=== PATIENT | male | born 1955 | race Caucasian/White ===

== ENCOUNTER 2022-09-06 00:31 | Emergency (ER) | payer OTHER, SELFPAY ==
[2022-09-06] VITALS (7 sets, daily range): BP systolic 104–188; BP diastolic 65–91; PULSE 55–79; RESP 12–19; TEMP 36.6; O2SAT 91–99; BMI 26.5
--- NOTE | 2022-09-06 00:46 | EKG12_ITS ---
Test Reason : HYPOGLYCEMIA Blood Pressure : / mmHG Vent. Rate : 055 BPM Atrial Rate : 055 BPM P-R Int : 198 ms QRS Dur : 106 ms QT Int : 492 ms P-R-T Axes : 061 027 058 degrees QTc Int : 470 ms Sinus bradycardia Otherwise normal ECG Confirmed by LUZ TERAN, LISA ([id number]), marketing editor DONAL ROCK ([id number]) on 09/07/2022 1:28:34 PM Referred By: VIRGILIO Confirmed By:LISA ESCOBAR MD
[2022-09-06 01:01] LABS: Bedside Glucose 141 mg/dL (74-106)
--- NOTE | 2022-09-06 01:29 | CT_ITS ---
INDICATION: fall EXAMINATION: CT Head or Brain W/O Contrast Injection TECHNIQUE: Multiple axial images were obtained of the head without intravenous contrast. A radiation dose optimization technique was used for this scan. IV Contrast dosage and agent: None. COMPARISON: None FINDINGS: BRAIN PARENCHYMA: No intra- or extra-axial hemorrhage. No evidence of acute major territorial infarct. Small, chronic right gangliocapsular lacunar infarcts. No intracranial mass or mass effect. Mild bilateral deep cerebral white matter lucencies are present. Chronic cerebral involutional changes. CSF SPACES: Prominent cerebral sulci and extraaxial spaces secondary to involutional changes. No hydrocephalus. Basal cisterns are patent. Intracranial atherosclerotic calcifications. CALVARIUM, SKULL BASE, PARANASAL SINUSES AND MASTOID AIR CELLS: Calvarium is intact. No acute findings within paranasal sinuses. Mastoid air cells are well-pneumatized. ORBITS: No acute findings. CT/Brain/Head without Contrast IMPRESSION: Cerebral atrophy and chronic small vessel ischemic changes. No evidence of acute intracranial abnormality. Electronically Signed: Herb Forde MD at 2:09 EST ,
[2022-09-06 01:59] LABS: Absolute Lymphocyte Count 1.38 X10^3/uL (0.83-4.51); Absolute Neutrophil Count 4.9 X10^3/uL (2.0-7.7); Basophil# 0.04 X10^3/uL; Basophil% 0.5 % (0-1); Eosinophil# 0.51 X10^3/uL; Eosinophils% 6.7 % (0-5); Hematocrit 38.2 % (40-54); Hemoglobin 12.7 g/dL (13.0-16.5); Lymphocyte # 1.38 X10^3/ul (0.83-4.51); Lymphocyte % 18.1 % (19-41); Mean Corp Hgb Conc 33.2 g/dL (32-36); Mean Corpuscular Hgb 29.6 pg (27.0-32.0); Mean Platelet Vol. 12.7 fl (6.2-12.0); Monocyte# 0.75 X10^3/uL; Monocyte% 9.8 % (0-10); NRBC Flagged by Analyzer 0 % (0-5); Neutrophil % 64.4 % (47-70); Platelet Count 221 K/mm3 (150-450); RBC Distribution Width CV 12.9 % (11.6-14.6); Red Blood Count 4.29 M/mm3 (4.6-6.2); White Blood Count 7.6 K/mm3 (4.4-11.0)
[2022-09-06 02:08] LABS: Anion Gap 6 (5-15); BUN 22 mg/dL (7-18); BUN/Creat Ratio 20.2 RATIO (10-20); Calcium,Total 9.3 mg/dL (8.5-10.1); Chloride 101 mmol/L (98-107); Creatinine, Serum 1.09 mg/dL (0.70-1.30); EST Glomerular Filtration Rate 72 mL/min (>60); Est Glom Filt Rate - Afr Amer 87 mL/min (>60); Estimated Creatinine Clearance 63.62 ml/min; Glucose 173 mg/dL (74-106); Sodium Level 133 mmol/L (136-145)
[2022-09-06 03:16] LABS: Bedside Glucose 405 mg/dL (74-106)
--- NOTE | 2022-09-06 03:59 | EDS_ITS ---
HPI History of Present Illness Chief Complaint: Hypoglycemia Informant: patient and family (son) Onset/Context/Timing Onset: Today (JPTA) Quality: decreased LOC Location: all over Current Severity: Gone Maximum Severity: Severe Worsened by: nothing Relieved by: Glucagon injection Narrative Narrative: Son provides the majority of the history. Patient was hypoglycemic at home, his son detected him lying on the floor unresponsive and depressed level of consciousness, checked his blood sugar and it was in the 40s because this is happened before, gave him an injection of glucagon and called EMS. EMS picked him up, blood sugar over 100 and patient improved, he now feels fine. 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 Son states his blood sugars have been all over the map, anywhere from 700 down to the 40s like tonight. Earlier today, patient was feeling fine, compliant with his diabetes medications/insulin which he takes before each meal, along with a long-acting at night and then a sliding scale for when he needs it. He took his insulin prior to eating dinner, after dinner at some point an hour or so maybe, his blood sugar was around 560, as checked by his son. He advised his dad to take at the appropriate dose of insulin, the patient does not remember if he took it in the sun did not witness whether he did it or not. Later in the middle of the night, he woke up as above, hypoglycemic. Since new to the area, the patient does not yet have a PCP nor supervisor scouring pads. No recent illnesses. Does not think he injured himself by falling tonight, he denies having a headache. [facility] Medical History Diabetes Hypertension Irregular heart beat Kidney disease Seizures Stroke/cerebrovascular accident Home Medications Unobtainable 09/06/22 [History Last Taken Unknown] Allergy/AdvReac Type Severity Reaction Status Date / Time No Known Allergies Allergy Verified 09/06/22 00:41 Social History Smoking Status: Former smoker ROS ROS ED Constitutional Constitutional ED: Denies chills or fever(s) Eyes Eyes: Denies change in vision or diplopia ENT ENT ED: Denies rhinorrhea or sore throat Cardiovascular Cardiovascular: Denies chest pain or palpitations Respiratory/Chest Respiratory/Chest: Denies cough or dyspnea Gastrointestinal Gastrointestinal: Denies abdominal pain, diarrhea, nausea or vomiting Genitourinary Genitourinary ED: Denies dysuria or hematuria Musculoskeletal Musculoskeletal: Denies back pain or neck pain Integumentary Denies abscess or rash Neurologic Neurologic: Denies headache(s), paresthesias or weakness Psychiatric Psychiatric: Denies anxiety or suicidal thoughts EXAM Physical Exam Const Vital Signs: 09/06/22 00:32 09/06/22 00:45 09/06/22 01:58 Temperature 97.8 F Temperature Source Temporal Pulse Rate 55 L 57 L Respiratory Rate 18 18 Respiratory Effort Normal Non-Labored Respiratory Pattern Normal Blood Pressure 188/91 H 111/66 Blood Pressure Mean 123 81 Pulse Ox 98 91 Oxygen Delivery Method Room Air Room Air 09/06/22 02:44 09/06/22 04:00 09/06/22 05:00 Temperature Temperature Source Pulse Rate 56 L 60 70 Respiratory Rate 16 14 12 Respiratory Effort Respiratory Pattern Blood Pressure 104/65 135/76 H 148/86 H Blood Pressure Mean 78 95 106 Pulse Ox 96 98 98 Oxygen Delivery Method Room Air Room Air Room Air 09/06/22 06:04 09/06/22 06:00 Temperature Temperature Source Pulse Rate 79 76 Respiratory Rate 19 H 12 Respiratory Effort Respiratory Pattern Blood Pressure 124/73 H 124/73 H Blood Pressure Mean 90 Pulse Ox 99 97 Oxygen Delivery Method Room Air Positive well nourished and well developed General Appearance ED: well developed and NAD HEENT Reports moist mucous membranes normocephalic and atraumatic Eyes PERRL and EOMs intact bilaterally Neck full ROM and supple Resp normal respiratory effort and clear to auscultation bilaterally Cardio regular rate, regular rhythm and no murmurs GI non-tender and non-distended Auscultation: normoactive bowel sounds Palpation: soft Back/Spine no CVA tenderness General Back: other FROM Extremity normal to inspection General Extremety ED: Negative for edema, pulses abnormal or tenderness General Extremity: Negative for edema or pulses abnormal Neuro oriented x3, CN's II-XII intact bilaterally and no sensory deficits noted Neuro Narrative: Amnestic to some detailed events from past day but oriented. Sensorium / Orientation: awake and alert Motor Exam: strength 5/5 throughout Psych mental status grossly normal Skin no rashes or lesions noted and no wounds MDM MDM MDM Narrative Medical decision making narrative: My interpretation of the CT agrees with that of the radiologist. Negative for any acute abnormality, this was performed since the patient is amnestic to events of the past several hours/day, and it was an unwitnessed possible fall unknown if he had any injury. He does not appear to have any other injuries, he can move all 4 extremities without any difficulty or pain, and he has no signs of trauma objectively. His blood tests are unremarkable, we spent a majority of his visit trying to level out his blood sugar. Without any specific treatment although initially I had the patient get a little something to eat, his blood sugars continue to rise of the next couple hours into the 400s and then I thought it would be reasonable to give him a dose of subcutaneous insulin to prevent him from rising further. We continued to monitor him, in addition to giving him fluids for some relatively mild prerenal azotemia. He was given 10 units of subcutaneous lispro, and on 2 different reevaluations within the next 1.5-2 hours, his blood sugar leveled off and came down into the mid 300s. Patient is doing well and feeling fine. I am comfortable with him going home I do not think admitting him to the hospital is necessary here. I am referring him to the next doctor on the unassigned list for primary care in addition to endocrine for diabetes and attempting to regain better sugar control. Lab Data Attestation: I reviewed the patient's lab results. Labs: Laboratory Results - last 24 hr 09/06/22 09/06/22 09/06/22 00:36 00:45 00:45 WBC 7.6 RBC 4.29 L Hgb 12.7 L Hct 38.2 L MCV 89.0 MCH 29.6 MCHC 33.2 RDW Std Deviation 42.0 RDW Coeff of Tyrese 12.9 Plt Count 221 MPV 12.7 H Immature Gran % (Auto) 0.500 Neut % (Auto) 64.4 Lymph % (Auto) 18.1 L [place] % (Auto) 9.8 Eos % (Auto) 6.7 H Baso % (Auto) 0.5 Absolute Neuts (auto) 4.9 Absolute Lymphs (auto) 1.38 Nucleated RBC % 0 Sodium 133 L Potassium 4.0 Chloride 101 Carbon Dioxide 26.0 Anion Gap 6 BUN 22 H Creatinine 1.09 Estim Creat Clear Calc 63.62 Est GFR (MDRD) Af Amer 87 Est GFR (MDRD) Non-Af 72 BUN/Creatinine Ratio 20.2 H Glucose 173 H Calcium 9.3 POC Glucose 141 H 09/06/22 09/06/22 09/06/22 02:54 04:50 05:29 WBC RBC Hgb Hct MCV MCH MCHC RDW Std Deviation RDW Coeff of Tyrese Plt Count MPV Immature Gran % (Auto) Neut % (Auto) Lymph % (Auto) [place] % (Auto) Eos % (Auto) Baso % (Auto) Absolute Neuts (auto) Absolute Lymphs (auto) Nucleated RBC % Sodium Potassium Chloride Carbon Dioxide Anion Gap BUN Creatinine Estim Creat Clear Calc Est GFR (MDRD) Af Amer Est GFR (MDRD) Non-Af BUN/Creatinine Ratio Glucose Calcium POC Glucose 405 H 371 H 361 H Radiography Diagnostic Testing: Clinical Impression(s) from Imaging Studies Brain CT 09/06/22 01:29 IMPRESSION: Cerebral atrophy and chronic small vessel ischemic changes. No evidence of acute intracranial abnormality. Electronically Signed: Herb Forde MD at 2:09 EST , Rhythm Strip Rhythm Strip: Sinus Rhythm Rate: 55 Ectopy: None EKG Initial EKG: Attestation: I personally reviewed and interpreted this EKG as follows: Interpretation: Sinus Rhythm and No Acute Injury Pattern Discharge Plan Triage Chief Complaint: Hypoglycemia ED Provider: Omar Garcia Dx/Rx/DC Orders Clinical Impression: Hypoglycemic event in diabetes, Uncontrolled type 1 diabetes mellitus Instructions: ED Diabetic Insulin Reaction Prescriptions: No Action Unobtainable Primary Care Provider: Care Physician,No Primary Referrals: Abdulkadir Nieto MD [Med Staff - Associate Professor Of Violin] - As soon as possible Lamine Najera MD [Med Staff - Courtesy Staff] - As soon as possible Care Physician,No Primary [Primary Care Provider] - Disposition Disposition: Home, Self Care Discharge Date/Time: 09/06/22 06:19
[2022-09-06] MEDS: Insulin Lispro 100 UNIT/ML INSULN.PEN 10 UNIT SC (04:12)
[2022-09-06 05:11] LABS: Bedside Glucose 371 mg/dL (74-106)
[2022-09-06 05:51] LABS: Bedside Glucose 361 mg/dL (74-106)
[2022-09-07 08:40] LABS: Bedside Glucose 358 mg/dL (74-106)
[2022-09-07 08:40] LABS: Bedside Glucose 367 mg/dL (74-106)
== END 2022-09-06 06:19 | disposition home or self-care (01) ==
PROVIDERS: Emergency Provider Emergency Medicine; Visit Provider Emergency Medicine
DX: E10.649 Type 1 diabetes mellitus with hypoglycemia without coma (principal); Z87.891 Personal history of nicotine dependence; Z86.73 Personal history of transient ischemic attack (TIA), and cerebral infarction without residual deficits
CPT/HCPCS: 70450; 80048; 82962; 85025; 93005; 96360; 99285; A4216

== ENCOUNTER 2022-09-09 18:18 | Inpatient (IN) | payer OTHER, SELFPAY ==
[2022-09-09 18:20] VITALS: BP 127/101; PULSE 79; RESP 16; TEMP 36.7; O2SAT 100; BMI 24.3
--- NOTE | 2022-09-09 19:25 | EKG12_ITS ---
Test Reason : DYSRHYTHMIA Blood Pressure : / mmHG Vent. Rate : 067 BPM Atrial Rate : 067 BPM P-R Int : 188 ms QRS Dur : 100 ms QT Int : 428 ms P-R-T Axes : 045 019 057 degrees QTc Int : 452 ms Normal sinus rhythm Normal ECG Confirmed by DIANE TERAN, MANISH ([id number]), editorial director DONAL ROCK ([id number]) on 09/13/2022 10:35:26 AM Referred By: AXEL Confirmed By:KEELY CONTRERAS MD
--- NOTE | 2022-09-09 19:32 | EX.ED.DYSGE1 ---
HPI History of Present Illness Chief Complaint: Hyperglycemia Detail of Chief Complaint: Sugar greater than 700, difficulty standing, polydipsia Informant: patient and family Onset/Context/Timing Onset: Today Context: Sudden Onset Timing: Continuous Quality: Difficulty standing and high blood sugar Location: Presents from home Current Severity: Moderate Maximum Severity: Moderate Worsened by: Nothing Relieved by: Nothing Associated Symptoms Associated Symptoms: Inability to stand or walk, which is abnormal for patient Narrative Narrative: Patient is a 67-year-old male with type 1 diabetes since 1989 and history of hypertension who presents with confusion, difficulty standing and blood sugar greater than 700. Blood sugar was greater than 600 for paramedics. Patient does complain of thirst and dry mouth. He states he has been drinking a lot of fluid. He has had little urine output, however. He denies history of renal disease. He denies fever, chills night sweats. [place] weight loss or weight gain. He does report by ocular blurred vision. He denies double vision or loss of vision. Suspect his blurred vision is due to hyperglycemia. He denies trouble with speech or swallowing. He denies paresthesia, anesthesia or motor weeks. He denies any rash or lesions on his feet. He denies nausea, vomit or diarrhea. He does endorse congestion, rhinorrhea and postnasal drainage. He states he has a mild sore throat with a bad cough that is nonproductive. Prior similar symptoms: Yes Recent Illness/Hospitalization: No [facility] Medical History Diabetes Hypertension Irregular heart beat Kidney disease Seizures Stroke/cerebrovascular accident Home Medications amlodipine 5 mg tablet 5 mg PO DAILY 09/08/22 [History Last Taken Unknown] blood-glucose sensor (Dexcom G6 Sensor device) #9 ea 09/08/22 [Rx Last Taken Unknown] blood-glucose transmitter (Dexcom G6 Transmitter device) #1 ea 09/08/22 [Rx Last Taken Unknown] carvedilol 25 mg tablet 25 mg PO BID 09/08/22 [History Last Taken Unknown] escitalopram oxalate 10 mg tablet 10 mg PO DAILY 09/08/22 [History Last Taken Unknown] insulin glargine 100 unit/mL (3 mL) subcutaneous pen (Lantus Solostar U-100 Insulin) 20 unit subcut QHS 09/08/22 [History Last Taken Unknown] losartan 100 mg tablet 100 mg PO DAILY 09/08/22 [History Last Taken Unknown] tamsulosin 0.4 mg capsule 0.4 mg PO DAILY 09/08/22 [History Last Taken Unknown] Allergy/AdvReac Type Severity Reaction Status Date / Time No Known Allergies Allergy Verified 09/08/22 13:22 Family History Other CVA (cerebral vascular accident) Colon cancer Diabetes Hypertension Social History (Updated 09/09/22 @ 19:[address] Don Neff MD) household members: family Smoking Status: Former smoker alcohol intake: former substance use type: does not use ROS ROS ED Constitutional Constitutional ED: Denies chills, fever(s), subjective, sweats or weight loss Eyes Eyes: Reports blurry vision bilateral; Denies change in vision or diplopia ENT ENT ED: Reports rhinorrhea and sore throat; Denies ear pain Cardiovascular Cardiovascular: Denies chest pain, orthopnea, palpitations, paroxysmal nocturnal dyspnea or racing heartbeat Respiratory/Chest Respiratory/Chest: Reports cough and dyspnea; Denies orthopnea or paroxysmal nocturnal dyspnea Gastrointestinal Gastrointestinal: Denies abdominal pain, diarrhea, melena, nausea or vomiting Genitourinary Genitourinary ED: Denies dysuria, hematuria or urinary frequency Musculoskeletal Musculoskeletal: Denies arthralgias, back pain, myalgias or neck pain Integumentary Denies abscess or rash Neurologic Neurologic: Reports weakness; Denies headache(s) or paresthesias Psychiatric Psychiatric: Denies anxiety or depression Endocrine Endocrinology: Reports polydipsia; Denies polyuria Hematologic/Lymphatic Hematologic/Lymphatic: Reports systems reviewed and no addt'l complaints, except as documented EXAM Physical Exam Const Vital Signs: 09/09/22 18:20 09/09/22 19:55 09/09/22 19:57 Temperature 98.0 F Temperature Source Temporal Pulse Rate 79 71 Respiratory Rate 16 35 H Respiratory Effort Normal Respiratory Pattern Tachypnea Blood Pressure 127/101 H Blood Pressure Mean 109 Pulse Ox 100 98 Oxygen Delivery Method Room Air Room Air Positive well nourished and well developed; Negative for obese General Appearance ED: well developed and NAD; Negative for cyanotic, diaphoretic or pallor Nutritional Appearance: Negative for obese HEENT Reports dry mucous membranes HEENT Narrative: Head is atraumatic no cephalic. Ears normal. TMs normal. Nares patent. Uvula midline. No deviation of protrusion. No erythema or exudate the posterior pharynx. Mouth ED: Yes dry mucous membranes Mouth: dry mucous membranes Eyes PERRL and EOMs intact bilaterally Eyes Narrative: Patient has mild Exsel phimosis. He denies history of thyroid disease. General Eye ED: Negative for pale conjunctiva or scleral icterus Neck no lymphadenopathy, supple and no JVD Chest Wall inspection of chest normal and palpation of chest normal Resp normal respiratory effort and No clear to auscultation bilaterally Auscultation: rales right base Cardio regular rate, regular rhythm, S1 normal heart sound, S2 normal heart sound and no murmurs GI normal to inspection, nondistended, normoactive bowel sounds, non-tender, non-distended and no masses; Negative for hepatosplenomegaly Back/Spine no CVA tenderness Cervical Spine: Negative for cervical spine tenderness Thoracic Spine / Upper Back: Negative for thoracic spinal tenderness Extremity normal to inspection Extremity Narrative: Patient has hair on his toes. DP and PT pulse are palpable but diminished. General Extremety ED: Negative for edema or tenderness General Extremity: Negative for edema Skin no rashes or lesions noted, no wounds and No skin turgor normal General Skin Exam: Negative for jaundice or pallor MDM MDM MDM Narrative Medical decision making narrative: With blood sugar greater than 600/700 concern patient may have honk versus mild DKA. DKA order set was initiated. IV fluids were ordered since patient does not have history of congestive heart failure. CBC to assess white count differential. Since patient appears slightly pale we will also evaluate for anemia. Basic metabolic panel was obtained to assess glucose CO2 anion gap and electrolytes as well as renal function. EKG to determine if there is any evidence of ischemia as a cause of his hyperglycemia since he has no symptoms other than respiratory. Since he does have rales at the right base with nonproductive cough will obtain rapid COVID and influenza screen as well. [facility] [place] was called. Patient apparently eyes became glossy and rolled back and he had abnormal movement of his extremities and now complains of severe headache. Will obtain CT of the head to rule out intracranial bleed. There is no postictal state. He was calling out for his mother who I was informed by his son to hide in 1988. Will administer an additional liter of normal saline Lab Data Attestation: I reviewed the patient's lab results. Lab results narrative: CBC is remarkable for mild anemia. Patient has hyponatremia and hypochloremia this may be due to the fact that he is on a diuretic. CO2 is low at 17 with an anion gap of 16. This would suggest patient has mild DKA. Blood sugar is 457. BUN is 32 with a creatinine of 1.79 and a GFR of 40. BUN and creatinine are elevated compared to prior. Prior BUN was 22 with a creatinine of 0.9. Graft/gravity is 1.02. And does reveal protein, glucose is acute sounds and is negative for occult blood, nitrites and leukoesterase. Patient's blood sugar improved with IV fluids from 457-237. Creatinine improved from 1.79-1.54 with fluids. Patient's BUN/creatinine ratio is greater than 20-1 which would suggest prerenal azotemia. With a anion gap acidosis ketones in urine patient has mild DKA. We will treat his elevated blood sugar with subcu insulin. In my opinion patient does not need an IV drip of insulin. Labs: Laboratory Results - last 24 hr 09/09/22 09/09/22 09/09/22 19:20 19:20 19:41 WBC 5.5 RBC 4.09 L Hgb 11.9 L Hct 35.8 L MCV 87.5 MCH 29.1 MCHC 33.2 RDW Std Deviation 41.6 RDW Coeff of Tyrese 13.0 Plt Count 229 MPV 12.6 H Immature Gran % (Auto) 1.300 H Neut % (Auto) 77.0 H Lymph % (Auto) 13.7 L [place] % (Auto) 7.3 Eos % (Auto) 0.2 Baso % (Auto) 0.5 Absolute Neuts (auto) 4.2 Absolute Lymphs (auto) 0.75 L Nucleated RBC % 0 Sodium 127 L Potassium 3.7 Chloride 94 L Carbon Dioxide 17.0 L Anion Gap 16 H BUN 32 H Creatinine 1.79 H Estim Creat Clear Calc 41.35 Est GFR (MDRD) Af Amer 49 L Est GFR (MDRD) Non-Af 40 L BUN/Creatinine Ratio 17.9 Glucose 457 H* Calcium 9.1 Troponin I High Sens 5 Urine Color Urine Clarity Urine pH Ur Specific [place] Urine Protein Urine Glucose (UA) Urine Ketones Urine Occult Blood Urine Nitrite Urine Bilirubin Urine Urobilinogen Ur Leukocyte Esterase Urine RBC Urine WBC Ur Squamous Epith Cells Urine Bacteria Hyaline Casts Urine Mucus POC Glucose 378 H 09/09/22 09/09/22 21:35 21:44 WBC RBC Hgb Hct MCV MCH MCHC RDW Std Deviation RDW Coeff of Tyrese Plt Count MPV Immature Gran % (Auto) Neut % (Auto) Lymph % (Auto) [place] % (Auto) Eos % (Auto) Baso % (Auto) Absolute Neuts (auto) Absolute Lymphs (auto) Nucleated RBC % Sodium 130 L Potassium 3.8 Chloride 100 Carbon Dioxide 21.0 Anion Gap 9 BUN 31 H Creatinine 1.54 H Estim Creat Clear Calc 48.06 Est GFR (MDRD) Af Amer 58 L Est GFR (MDRD) Non-Af 48 L BUN/Creatinine Ratio 20.1 H Glucose 237 H Calcium 8.3 L Troponin I High Sens Urine Color Yellow Urine Clarity Clear Urine pH 5.0 Ur Specific [place] 1.020 Urine Protein 15 H Urine Glucose (UA) 1000 H Urine Ketones 50 H Urine Occult Blood Negative Urine Nitrite Negative Urine Bilirubin 1 H Urine Urobilinogen Normal Ur Leukocyte Esterase Negative Urine RBC 0 SEEN Urine WBC 0 SEEN Ur Squamous Epith Cells 0-5 SEEN Urine Bacteria 0 SEEN Hyaline Casts 0-5 SEEN Urine Mucus 0 SEEN POC Glucose Radiography Chest X-Ray - ED: 1 View and Read by ED Physician (Reviewed interpreted by me at 1810 as no acute process. There is no effusion or infiltrate. Cardiac silhouette size normal. Perihilar region normal. Osseous structures are unremarkable.) Diagnostic Testing: Clinical Impression(s) from Imaging Studies Chest X-Ray 09/09/22 19:47 IMPRESSION: No radiographic evidence of acute cardiopulmonary disease. Electronically Signed: Dickson Salinas MD at 20:38 EST , Brain CT 09/09/22 19:50 IMPRESSION: Mild atrophy and periventricular white matter ischemic change. No acute bleed. If concern for acute infarct MRI recommended Electronically Signed: Dickson Salinas MD at 20:40 EST , CT of the head without contrast was reviewed by me at 2015. There is no evidence of subdural, epidural, subarachnoid hemorrhage or intraparenchymal bleed. There is no evidence of sinusitis. Awaiting formal read by radiologist. Rhythm Strip Rhythm Strip: Sinus Rhythm Rate: 82 Ectopy: None EKG Initial EKG: Attestation: I personally reviewed and interpreted this EKG as follows: Interpretation: Sinus Rhythm (Normal sinus rhythm rate of 67. EKG is normal. RI interval 108 ms. Cures duration 100 ms. QT duration 4 to 28 ms. [place] is normal) Critical Care Time Critical Care Time: Yes Critical care time (excluding procedures): 30-74 minutes (31), Including time spent: (History, physical, documentation review of prior records, interpretation laboratory results initiation of therapy), Discussing w/Patient &/or Family/Automobile Body Repair Supervisor (Son who is the POA was informed of results and plan), Discussing w/Consultants (Admitting physician) and Arranging Admission or Transfer Discharge Plan Dx/Rx/DC Orders Clinical Impression: DKA, type 1, Acute prerenal azotemia, Acute kidney insufficiency, Acute alteration in mental status, Physical debility Disposition Disposition: Acute Care Hospital [facility]
[2022-09-09 19:43] LABS: Absolute Lymphocyte Count 0.75 X10^3/uL (0.83-4.51); Absolute Neutrophil Count 4.2 X10^3/uL (2.0-7.7); Basophil# 0.03 X10^3/uL; Basophil% 0.5 % (0-1); Eosinophil# 0.01 X10^3/uL; Eosinophils% 0.2 % (0-5); Hematocrit 35.8 % (40-54); Hemoglobin 11.9 g/dL (13.0-16.5); Lymphocyte # 0.75 X10^3/ul (0.83-4.51); Lymphocyte % 13.7 % (19-41); Mean Corp Hgb Conc 33.2 g/dL (32-36); Mean Corpuscular Hgb 29.1 pg (27.0-32.0); Mean Corpuscular Volume 87.5 fL (80-94); Mean Platelet Vol. 12.6 fl (6.2-12.0); Monocyte% 7.3 % (0-10); NRBC Flagged by Analyzer 0 % (0-5); Platelet Count 229 K/mm3 (150-450); RBC Distribution Width SD 41.6 fl (35.1-43.9); Red Blood Count 4.09 M/mm3 (4.6-6.2); White Blood Count 5.5 K/mm3 (4.4-11.0)
--- NOTE | 2022-09-09 19:47 | RAD_ITS ---
INDICATION: Cough, hypoxia EXAMINATION/TECHNIQUE: X-RAY - XR Chest 1 View COMPARISON: None. FINDINGS: LINES/DEVICES: None. LUNGS: No consolidation, edema or effusion. No pneumothorax. MEDIASTINUM AND CARDIOVASCULAR STRUCTURES: Cardiac silhouette not enlarged. Central airways and mediastinal contour are unremarkable. BONES AND SOFT TISSUES: Unremarkable. RAD/Chest 1 View (Portable) IMPRESSION: No radiographic evidence of acute cardiopulmonary disease. Electronically Signed: Dickson Salinas MD at 20:38 EST ,
--- NOTE | 2022-09-09 19:50 | CT_ITS ---
INDICATION: Acute headache and change in mental status EXAMINATION: CT BRAIN - CT Head or Brain W/O Contrast Injection TECHNIQUE: Multiple axial images were obtained of the head without intravenous contrast. A radiation dose optimization technique was used for this scan. IV Contrast dosage and agent: None. COMPARISON: September 06, 2022 FINDINGS: Mild calcification of cavernous carotids BRAIN PARENCHYMA: No intra- or extra-axial hemorrhage. No evidence of acute infarct. No intracranial mass or mass effect. There is preservation of the zeng/white matter interface. Posterior fossa structures are unremarkable. Mild atrophy and periventricular white matter ischemic changes.. CALVARIUM, SKULL BASE, PARANASAL SINUSES AND MASTOID AIR CELLS: Mild mucosal thickening of the right maxillary sinus No discrete lytic or blastic abnormalities. ORBITS: Postsurgical changes of the orbits ASPECTS Score for Acute Strokes: 10 CT/Brain/Head without Contrast IMPRESSION: Mild atrophy and periventricular white matter ischemic change. No acute bleed. If concern for acute infarct MRI recommended Electronically Signed: Dickson Salinas MD at 20:40 EST ,
--- NOTE | 2022-09-09 19:51 | ED.RN ---
respiratory staff in the room completing ekg, patient stated acting abnormal and yelling out for mother who has passed and started making abnormal movement. respiratory staff then hit code blue button requesting medical help. nursing staff in the room canceled code blue. pt assessment completed pt acting slightly abnormal. per so patient has acted like this before with stroke. Dr. Neff called into the room. exam unremarkable. pt orders to be placed for stroke work up.
[2022-09-09] MEDS: 0.9% Normal Saline 1,000 ML 999 ML IV (19:54)
[2022-09-09 19:55] VITALS: PULSE 71; RESP 35; O2SAT 98
[2022-09-09 20:00] LABS: Bedside Glucose 378 mg/dL (74-106)
[2022-09-09 20:07] LABS: Anion Gap 16 (5-15); BUN 32 mg/dL (7-18); BUN/Creat Ratio 17.9 RATIO (10-20); Calcium,Total 9.1 mg/dL (8.5-10.1); Chloride 94 mmol/L (98-107); Creatinine, Serum 1.79 mg/dL (0.70-1.30); EST Glomerular Filtration Rate 40 mL/min (>60); Est Glom Filt Rate - Afr Amer 49 mL/min (>60); Estimated Creatinine Clearance 41.35 ml/min; Glucose 457 mg/dL (74-106); Potassium 3.7 mmol/L (3.5-5.1); Sodium Level 127 mmol/L (136-145); Troponin-I HS 5 pg/mL (3.0-78.0)
--- NOTE | 2022-09-09 20:27 | ED.RN ---
1910 dr bueno met the pt in the hooker on ems cot.
[2022-09-09 21:55] LABS: Bacteria 0 SEEN /hpf (None Seen); Mucous, Urine 0 SEEN /hpf (<or=2+); Red Blood Cells-Urine 0 SEEN /hpf (0-5); White Blood Cells 0 SEEN /hpf (0-5)
[2022-09-09 22:10] LABS: Anion Gap 9 (5-15); BUN 31 mg/dL (7-18); BUN/Creat Ratio 20.1 RATIO (10-20); Calcium,Total 8.3 mg/dL (8.5-10.1); Chloride 100 mmol/L (98-107); Creatinine, Serum 1.54 mg/dL (0.70-1.30); EST Glomerular Filtration Rate 48 mL/min (>60); Est Glom Filt Rate - Afr Amer 58 mL/min (>60); Estimated Creatinine Clearance 48.06 ml/min; Glucose 237 mg/dL (74-106); Potassium 3.8 mmol/L (3.5-5.1); Sodium Level 130 mmol/L (136-145)
[2022-09-09 22:19] LABS: Color, Urine Yellow (Yellow); Glucose, Dipstick 1000 mg/dl (Normal); Ketone-Dipstick 50 mg/dl (Negative); Leukocyte Esterase-Dipstick Negative /ul (Negative); Nitrite-Dipstick Negative (Negative); Occult Blood-Urine Negative /ul (Negative); Protein-Dipstick 15 mg/dl (Negative); Urine Clarity Clear (Clear); Urine Urobilinogen Normal (Normal)
[2022-09-09 22:24] LABS: Urine Bilirubin Dipstick 1 mg/dL (Negative)
[2022-09-09 22:28] LABS: Hyaline Cast 0-5 SEEN /lpf (0-5); Squamous Epithelial Cells - UA 0-5 SEEN /hpf (0-5)
[2022-09-09 22:37] VITALS: BP 123/76; PULSE 68; RESP 18; TEMP 36.7; O2SAT 99
--- NOTE | 2022-09-09 22:59 | PCM.HP.STD ---
HPI - General General Date of Admission: 09/09/22 Date of Service: 09/09/22 Chief Complaint: Hyperglycemia HPI Narrative LUIZ HYDE, is a 67 M with a significant history of type 1 diabetes who presents emergency department with hyperglycemia. Reportedly his home blood sugar was more than 700. Also reported patient had intermittent confusion. He reports some congestion with cough. He report that with coughing he blacks out. He reports an episode of syncope at home. He denies any nausea or vomiting. He reports anorexia. Reportedly he is unable to walk after passing out. At the emergency department patient complains of headache and then his eyes rolled back. CODE BLUE was called but a CODE BLUE was aborted. [facility] Medical History Depression Diabetes Hypertension Irregular heart beat Kidney disease Seizures Stroke/cerebrovascular accident Home Medications amlodipine 5 mg tablet 5 mg PO DAILY blood pressure 09/08/22 [History Last Taken Unknown] blood-glucose sensor (Dexcom G6 Sensor device) #9 ea 09/08/22 [Rx Last Taken Unknown] blood-glucose transmitter (Dexcom G6 Transmitter device) #1 ea 09/08/22 [Rx Last Taken Unknown] carvedilol 25 mg tablet 12.5 mg PO BID 09/08/22 [History Last Taken Unknown] escitalopram oxalate 10 mg tablet 10 mg PO DAILY depression 09/08/22 [History Last Taken Unknown] insulin glargine 100 unit/mL (3 mL) subcutaneous pen (Lantus Solostar U-100 Insulin) 22 unit subcut QHS 09/08/22 [History Last Taken Unknown] tamsulosin 0.4 mg capsule 0.4 mg PO DAILY prostate 09/08/22 [History Last Taken Unknown] aspirin 81 mg tablet 81 mg PO DAILY 09/10/22 [History Last Taken Unknown] insulin lispro 100 unit/mL subcutaneous pen (Humalog KwikPen (U-100) Insulin) subcut 09/10/22 [History Last Taken Unknown] losartan 100 mg-hydrochlorothiazide 25 mg tablet 1 tab PO DAILY 09/10/22 [History Last Taken Unknown] metoprolol succinate 100 mg tablet,extended release 24 hr 100 mg PO DAILY 09/10/22 [History Last Taken Unknown] Allergy/AdvReac Type Severity Reaction Status Date / Time No Known Allergies Allergy Verified 09/08/22 13:22 Family History Other CVA (cerebral vascular accident) Colon cancer Diabetes Hypertension Surgical History no surgical history no surgical history Social History household members: family Smoking Status: Former smoker alcohol intake: former substance use type: does not use ROS ROS Narrative Pertinent positives and pertinent negatives as noted in HPI. All other systems were reviewed and are negative Vital Signs Vital Signs Vital Signs: 09/09/22 18:20 09/09/22 19:55 09/09/22 19:57 Temperature 98.0 F Temperature Source Temporal Pulse Rate 79 71 Respiratory Rate 16 35 H Respiratory Effort Normal Respiratory Pattern Tachypnea Blood Pressure 127/101 H Blood Pressure Mean 109 Pulse Ox 100 98 Oxygen Delivery Method Room Air Room Air Weight Weight: 77.111 kg Body Mass Index (BMI) 24.3 Physical Exam Narrative Physical exam: General: Well-nourished, well-developed. Head: Normocephalic, atraumatic, no tenderness Eyes: Vision is grossly intact. EOMI ENT, no trauma, moist mucous membranes, no rhinorrhea Neck: Nontender, No thyromegaly. CVS: Regular rate and rhythm. S1-S2 present. No murmur, gallop or rub. Respiratory : clear to auscultation bilaterally, chest wall nontender, no wheezing Abdomen: Soft, nontender, nondistended, normal bowel sounds, no masses : Deferred Back: Nontender, no CVA tenderness, no midline spinal tenderness, deformities, step-offs Extremities: Nontender full range of motion, no trauma Skin: Normal color, no trauma, abrasions Neuro: Alert, oriented, cranial nerves II through XII grossly intact. Psychiatry: Normal mood. Normal affect. Not depressed. Not anxious. Results Lab / Micro Data Result Diagrams: 09/09/22 19:20 09/09/22 21:35 Labs: Laboratory Results - last 24 hr 09/09/22 19:20: WBC 5.5, RBC 4.09 L, Hgb 11.9 L, Hct 35.8 L, MCV 87.5, MCH 29.1, MCHC 33.2, RDW Std Deviation 41.6, RDW Coeff of Tyrese 13.0, Plt Count 229, MPV 12.6 H, Immature Gran % (Auto) 1.300 H, Neut % (Auto) 77.0 H, Lymph % (Auto) 13.7 L, [place] % (Auto) 7.3, Eos % (Auto) 0.2, Baso % (Auto) 0.5, Absolute Neuts (auto) 4.2, Absolute Lymphs (auto) 0.75 L, Nucleated RBC % 0 09/09/22 19:20: Sodium 127 L, Potassium 3.7, Chloride 94 L, Carbon Dioxide 17.0 L, Anion Gap 16 H, BUN 32 H, Creatinine 1.79 H, Estim Creat Clear Calc 41.35, Est GFR (MDRD) Af Amer 49 L, Est GFR (MDRD) Non-Af 40 L, BUN/Creatinine Ratio 17.9, Glucose 457 H*, Calcium 9.1, Troponin I High Sens 5 09/09/22 19:41: POC Glucose 378 H 09/09/22 21:35: Sodium 130 L, Potassium 3.8, Chloride 100, Carbon Dioxide 21.0, Anion Gap 9, BUN 31 H, Creatinine 1.54 H, Estim Creat Clear Calc 48.06, Est GFR (MDRD) Af Amer 58 L, Est GFR (MDRD) Non-Af 48 L, BUN/Creatinine Ratio 20.1 H, Glucose 237 H, Calcium 8.3 L 09/09/22 21:44: Urine Color Yellow, Urine Clarity Clear, Urine pH 5.0, Ur Specific [place] 1.020, Urine Protein 15 H, Urine Glucose (UA) 1000 H, Urine Ketones 50 H, Urine Occult Blood Negative, Urine Nitrite Negative, Urine Bilirubin 1 H, Urine Urobilinogen Normal, Ur Leukocyte Esterase Negative, Urine RBC 0 SEEN, Urine WBC 0 SEEN, Ur Squamous Epith Cells 0-5 SEEN, Urine Bacteria 0 SEEN, Hyaline Casts 0-5 SEEN, Urine Mucus 0 SEEN Micro: Microbiology 09/09/22 20:34 Nasal Secretion SARS-CoV-2 & FLU Antigen (Rapid) - Final Rhythm Strip Rhythm Strip: Sinus Rhythm Rate: 82 Ectopy: None Radiology Impression Chest X-Ray 09/09/22 19:47 IMPRESSION: No radiographic evidence of acute cardiopulmonary disease. Electronically Signed: Dickson Salinas MD at 20:38 EST , Brain CT 09/09/22 19:50 IMPRESSION: Mild atrophy and periventricular white matter ischemic change. No acute bleed. If concern for acute infarct MRI recommended Electronically Signed: Dickson Salinas MD at 20:40 EST , Assessment & Plan Assessment/Plan (1) DKA, type 1: (2) Acute prerenal azotemia: (3) Hyperglycemia due to diabetes mellitus: PLAN: Plan DKA type I Reports hyperglycemia at home with multiple use of insulin without improvement Initial serum glucose was 457 Initial anion gap of 16. With lead patient anion gap dropped to 9. His blood glucose dropped to 237 and repeat fingerstick dropped to 150. Initial sodium of 127 making corrected sodium of 133. Received 5 units subcutaneous of insulin at the emergency department with return blood glucose of 150. We will start patient on dextrose infusion with potassium; and then normal saline only. Admit patient to PCU stepdown on blood glucose check every 2 hours with correction scale insulin. Keep patient n.p.o. except meds. Trend BMP. A1c on presentation was 8.5. Syncope EKG showed sinus rhythm. Admit on telemetry. Echocardiogram ordered. Initial troponin was negative. Orthostatic vitals per protocol ILANA on cKD Stage II CKD likely secondary to diabetes. Initial creatinine presentation was 1.7. IV fluid hydration. Trend BMP. Avoid nephrotoxins. Home losartan and hydrochlorothiazide held. Cold-like symptoms Schedule Mucinex ordered. Hypertension Blood pressure is not within goal Home amlodipine and carvedilol ordered. Metoprolol continued. Hold losartan and hydrochlorothiazide. Trend blood pressure and adjust blood pressure medications. DVT prophylaxis Subcutaneous Lovenox ordered. Charges/Coding Visit Charges Inpatient E&M: 31303 Init Hosp L3
[2022-09-09 23:21] LABS: Bedside Glucose 150 mg/dL (74-106)
[2022-09-09 23:57] VITALS: BP 114/77; BP 138/84; BP 140/78; PULSE 67; PULSE 69; PULSE 73; BMI 23.6
--- NOTE | 2022-09-09 23:57 | ECHOD_ITS ---
Reason For Study: SYNCOPE Procedure This was a 2D Doppler, Color Flow transthoracic echocardiogram. Exam performed portable in patient room. Left Ventricle Normal LV size. The estimated ejection fraction is 65 %. Normal diastology for age. No regional wall motion abnormalities noted. Right Ventricle Normal RV size. Normal systolic function. Atria Normal left atrium. Normal right atrium. No doppler evidence for ASD. Mitral Valve There is no mitral valve stenosis. Trivial mitral valve insufficiency. Tricuspid Valve There is no tricuspid stenosis. Trivial tricuspid valve insufficiency. Pulmonary artery systolic pressure is 30 mmHg. Aortic Valve Trisinus/trileaflet aortic valve. There is no aortic stenosis. No aortic valve insufficiency. Pulmonic Valve There is no pulmonic valvular stenosis. No pulmonic valve insufficiency. Great Vessels Normal aortic root. Pericardium/Pleural No pericardial effusion. MMode/2D Measurements & Calculations Ao root diam: 3.3 cm LAV(MOD-sp4): 46.4 ml LVAd ap4: 24.9 cm2 LVLd ap4: 7.7 cm EDV(MOD-sp4): 66.7 ml EDV(sp4-el): 67.8 ml LVAs ap4: 12.7 cm2 LVLs ap4: 6.2 cm ESV(MOD-sp4): 24.2 ml ESV(sp4-el): 22.2 ml EF(MOD-sp4): 63.7 % EF(sp4-el): 67.3 % SV(MOD-sp4): 42.5 ml SV(sp4-el): 45.7 ml LA A4 area: 19.0 cm2 LA dimension(2D): 3.4 cm RA A4 area: 16.0 cm2 Time Measurements MV dec time: 0.21 sec Doppler Measurements & Calculations MV E max roshan: 102.7 cm/sec Lat Peak E' Roshan: 9.4 cm/sec Med Peak E' Roshan: 9.3 cm/sec MV A max roshan: 103.6 cm/sec E/E' lat: 10.9 E/E' med: 11.0 MV E/A: 0.99 MV V2 max: 110.7 cm/sec MV dec slope: 505.3 cm/sec2 Ao V2 max: 155.5 cm/sec MV max P.9 mmHg Ao max P.7 mmHg MV V2 mean: 77.8 cm/sec Ao V2 mean: 101.2 cm/sec MV mean P.6 mmHg Ao mean P.7 mmHg MV V2 VTI: 36.9 cm Ao V2 VTI: 34.8 cm AV (velocity ratio): 0.77 LV V1 max: 113.0 cm/sec PA V2 max: 77.7 cm/sec TR max roshan: 264.6 cm/sec LV V1 max P.1 mmHg PA V2 mean: 56.3 cm/sec TR max P.0 mmHg LV V1 mean P.8 mmHg LV V1 mean: 78.4 cm/sec LV V1 VTI: 26.9 cm ECHO/Echo Complete Interpretation Summary The estimated ejection fraction is 65 %. Trivial mitral valve insufficiency. Ordering Physician: Burton Rowley Referring Physician: DEVI PCP Performed By: Anabela Mcneil RCS
[2022-09-10] VITALS (11 sets, daily range): BP systolic 87–152; BP diastolic 68–85; PULSE 66–82; RESP 16–18; TEMP 36.4–36.8; O2SAT 97–99
[2022-09-10] MEDS: guaiFENesin 1,200 MG Tablet 1200 MG PO ×3 (00:23→21:50)
[2022-09-10] MEDS: KCL 20MEQ in D5.45NS 20 MEQ/1,000 ML IV.SOLN. 150 MEQ IV (00:23)
[2022-09-10 01:06] LABS: Bedside Glucose 119 mg/dL (74-106)
[2022-09-10] MEDS: Insulin Lispro 100 UNIT/ML INSULN.PEN SC ×6 (03:53→21:50)
[2022-09-10 04:13] LABS: Absolute Lymphocyte Count 1.33 X10^3/uL (0.83-4.51); Basophil# 0.02 X10^3/uL; Basophil% 0.5 % (0-1); Eosinophil# 0.16 X10^3/uL; Eosinophils% 3.9 % (0-5); Hematocrit 32.5 % (40-54); Lymphocyte # 1.33 X10^3/ul (0.83-4.51); Lymphocyte % 32.4 % (19-41); Mean Corp Hgb Conc 33.8 g/dL (32-36); Mean Corpuscular Hgb 28.9 pg (27.0-32.0); Mean Corpuscular Volume 85.3 fL (80-94); Mean Platelet Vol. 11.9 fl (6.2-12.0); Monocyte# 0.54 X10^3/uL; Monocyte% 13.2 % (0-10); NRBC Flagged by Analyzer 0 % (0-5); Neutrophil # 2.02 X10^3/uL (2.7-7.7); Neutrophil % 49.3 % (47-70); Platelet Count 185 K/mm3 (150-450); RBC Distribution Width CV 12.9 % (11.6-14.6); RBC Distribution Width SD 39.8 fl (35.1-43.9); Red Blood Count 3.81 M/mm3 (4.6-6.2); White Blood Count 4.1 K/mm3 (4.4-11.0)
[2022-09-10 04:16] LABS: Bedside Glucose 219 mg/dL (74-106)
[2022-09-10 05:06] LABS: Anion Gap 11 (5-15); BUN 23 mg/dL (7-18); BUN/Creat Ratio 19.8 RATIO (10-20); Calcium,Total 8.4 mg/dL (8.5-10.1); Chloride 105 mmol/L (98-107); Creatinine, Serum 1.16 mg/dL (0.70-1.30); EST Glomerular Filtration Rate 67 mL/min (>60); Est Glom Filt Rate - Afr Amer 81 mL/min (>60); Estimated Creatinine Clearance 63.81 ml/min; Glucose 220 mg/dL (74-106); Potassium 4.1 mmol/L (3.5-5.1); Sodium Level 135 mmol/L (136-145)
[2022-09-10 05:51] LABS: Bedside Glucose 258 mg/dL (74-106)
[2022-09-10] MEDS: 0.9% Normal Saline 1,000 ML 75 ML IV ×2 (06:44→18:58)
[2022-09-10] MEDS: Insulin Glargine-YFGN 100 UNIT/ML Pen 20 UNIT SC (07:25)
[2022-09-10 07:50] LABS: Bedside Glucose 160 mg/dL (74-106)
--- NOTE | 2022-09-10 09:19 | PCM.PN.HOSP ---
Subjective Subjective Patient's son present in room and states that the patient has recently, from [place] to stay with him. Patient had been on a insulin pump at 1 point for what was described as diabetes 1.5. Objective Data Objective Data Vital Signs: Vital Signs Temp Pulse Resp BP Pulse Ox O2 Del Method 36.6 C 66 18 151/83 H 99 Room Air 09/10/22 06:30 09/10/22 06:30 09/10/22 06:30 09/10/22 06:30 09/10/22 07:32 09/10/22 07:50 Oxygen Delivery Method Room Air Weight: 74.9 kg Body Mass Index (BMI) 23.6 Intake & Output: Intake and Output for Last 24 Hours 09/08/22 09/09/22 09/10/22 23:59 23:59 23:59 Intake Total 1000 / 1000 1460 / 1460 Output Total 1725 / 1725 Balance 1000 / 1000 -265 / -265 Lab / Micro Data Result Diagrams: 09/10/22 03:41 09/10/22 03:41 Labs: Laboratory Results - last 24 hr 09/09/22 19:20: WBC 5.5, RBC 4.09 L, Hgb 11.9 L, Hct 35.8 L, MCV 87.5, MCH 29.1, MCHC 33.2, RDW Std Deviation 41.6, RDW Coeff of Tyrese 13.0, Plt Count 229, MPV 12.6 H, Immature Gran % (Auto) 1.300 H, Neut % (Auto) 77.0 H, Lymph % (Auto) 13.7 L, Iron % (Auto) 7.3, Eos % (Auto) 0.2, Baso % (Auto) 0.5, Absolute Neuts (auto) 4.2, Absolute Lymphs (auto) 0.75 L, Nucleated RBC % 0 09/09/22 19:20: Sodium 127 L, Potassium 3.7, Chloride 94 L, Carbon Dioxide 17.0 L, Anion Gap 16 H, BUN 32 H, Creatinine 1.79 H, Estim Creat Clear Calc 41.35, Est GFR (MDRD) Af Amer 49 L, Est GFR (MDRD) Non-Af 40 L, BUN/Creatinine Ratio 17.9, Glucose 457 H*, Calcium 9.1, Troponin I High Sens 5 09/09/22 19:41: POC Glucose 378 H 09/09/22 21:35: Sodium 130 L, Potassium 3.8, Chloride 100, Carbon Dioxide 21.0, Anion Gap 9, BUN 31 H, Creatinine 1.54 H, Estim Creat Clear Calc 48.06, Est GFR (MDRD) Af Amer 58 L, Est GFR (MDRD) Non-Af 48 L, BUN/Creatinine Ratio 20.1 H, Glucose 237 H, Calcium 8.3 L 09/09/22 21:44: Urine Color Yellow, Urine Clarity Clear, Urine pH 5.0, Ur Specific [place] 1.020, Urine Protein 15 H, Urine Glucose (UA) 1000 H, Urine Ketones 50 H, Urine Occult Blood Negative, Urine Nitrite Negative, Urine Bilirubin 1 H, Urine Urobilinogen Normal, Ur Leukocyte Esterase Negative, Urine RBC 0 SEEN, Urine WBC 0 SEEN, Ur Squamous Epith Cells 0-5 SEEN, Urine Bacteria 0 SEEN, Hyaline Casts 0-5 SEEN, Urine Mucus 0 SEEN 09/09/22 23:02: POC Glucose 150 H 09/10/22 00:42: POC Glucose 119 H 09/10/22 03:41: WBC 4.1 L, RBC 3.81 L, Hgb 11.0 L, Hct 32.5 L, MCV 85.3, MCH 28.9, MCHC 33.8, RDW Std Deviation 39.8, RDW Coeff of Tyrese 12.9, Plt Count 185, MPV 11.9, Immature Gran % (Auto) 0.700, Neut % (Auto) 49.3, Lymph % (Auto) 32.4, Iron % (Auto) 13.2 H, Eos % (Auto) 3.9, Baso % (Auto) 0.5, Absolute Neuts (auto) 2.0, Absolute Lymphs (auto) 1.33, Nucleated RBC % 0 09/10/22 03:41: Sodium 135 L, Potassium 4.1, Chloride 105, Carbon Dioxide 19.0 L, Anion Gap 11, BUN 23 H, Creatinine 1.16, Estim Creat Clear Calc 63.81, Est GFR (MDRD) Af Amer 81, Est GFR (MDRD) Non-Af 67, BUN/Creatinine Ratio 19.8, Glucose 220 H, Calcium 8.4 L 09/10/22 03:46: POC Glucose 219 H 09/10/22 05:28: POC Glucose 258 H 09/10/22 07:23: POC Glucose 160 H Micro: Microbiology 09/09/22 20:34 Nasal Secretion SARS-CoV-2 & FLU Antigen (Rapid) - Final Radiography Diagnostic Testing: Radiology Impression Chest X-Ray 09/09/22 19:47 IMPRESSION: No radiographic evidence of acute cardiopulmonary disease. Electronically Signed: Dickson Salinas MD at 20:38 EST , Brain CT 09/09/22 19:50 IMPRESSION: Mild atrophy and periventricular white matter ischemic change. No acute bleed. If concern for acute infarct MRI recommended Electronically Signed: Dickson Salinas MD at 20:40 EST , Rhythm Strip Rhythm Strip: Sinus Rhythm Rate: 82 Ectopy: None Physical Exam Const alert and no apparent distress Resp normal respiratory effort, no retractions, no use of accessory muscles and clear to auscultation bilaterally Cardio regular rate, regular rhythm, S1 normal heart sound and S2 normal heart sound GI normal to inspection, nondistended, normoactive bowel sounds, soft to palpation and non-tender Assessment & Plan Assessment/Plan (1) DKA, type 1: QUALIFIERS: Diabetes mellitus complication detail: without coma Qualified Code(s): E10.10 - Type 1 diabetes mellitus with ketoacidosis without coma PLAN: DKA type I Reports hyperglycemia at home with multiple use of insulin without improvement Initial serum glucose was 457 Initial anion gap of 16. With lead patient anion gap dropped to 9. His blood glucose dropped to 237 and repeat fingerstick dropped to 150. Initial sodium of 127 making corrected sodium of 133. Received 5 units subcutaneous of insulin at the emergency department with return blood glucose of 150. We will start patient on dextrose infusion with potassium; and then normal saline only. Admit patient to PCU stepdown on blood glucose check every 2 hours with correction scale insulin. Keep patient n.p.o. except meds. Trend BMP. A1c on presentation was 8.5. Patient was adult onset of diabetes so the patient is more of a insulin-dependent diabetic those described to me that he was characterized as 1.5 by his physicians in [place]. Currently his glucose is overall doing better though this most recent was in the 300s. Patient on 20 units of insulin glargine daily plus sliding scale insulin. Increase glargine to 25 (2) ILANA (acute kidney injury): PLAN: POA Improving with IVF. Initial creatinine presentation was 1.7. IV fluid hydration. Trend BMP. Avoid nephrotoxins. Home losartan and hydrochlorothiazide held. (3) Syncope: PLAN: Syncope EKG showed sinus rhythm. Admit on telemetry. Echocardiogram ordered. Initial troponin was negative. Orthostatic vitals positive, recheck (4) Orthostatic hypotension: PLAN: Patient was able to pull up his list and I verified the patient is taking carvedilol 12.5 mg twice daily plus metoprolol succinate 100 mg daily and losartan/HCTZ and amlodipine. Will discontinue the carvedilol given the orthostasis. Also discontinue the amlodipine and losartan/HCTZ Continue the metoprolol succinate but at 50 mg/day. . PLAN: Plan Cold-like symptoms Schedule Mucinex ordered. Hypertension Blood pressure is not within goal Home amlodipine and carvedilol ordered. Metoprolol continued. Hold losartan and hydrochlorothiazide. Trend blood pressure and adjust blood pressure medications. DVT prophylaxis Subcutaneous Lovenox ordered. Charges/Coding Visit Charges Inpatient E&M: 81805 [facility] Hosp L2
[2022-09-10] MEDS: Escitalopram Oxalate 10 MG Tablet PO (10:31)
[2022-09-10] MEDS: Enoxaparin 40 MG/0.4 ML Syringe SC (10:31)
[2022-09-10] MEDS: Aspirin 81 MG TAB.CHEW PO (10:31)
[2022-09-10] MEDS: Tamsulosin HCl 0.4 MG Capsule PO (10:31)
[2022-09-10 11:40] LABS: Bedside Glucose 302 mg/dL (74-106)
--- NOTE | 2022-09-10 14:06 | CASEMGMT ---
MARK NGUYEN Face to Face with patient for initial transition planning/care coordination assessment. RN CM introduced self and role at [facility]. Patient lying in bed, alert and oriented. Patient willing to participate in assessment and is able to answer all questions appropriately. Care providers, pharmacy, and demographics verified. Patient wishes to discharge home, denies need for home health at this time. Patient states he has no further needs or concerns at this time. CM to follow for discharge planning needs that may arise. PCP: Patient is getting established with Alex or Allison and has appt on 09/23. List of local PCPs provided to patient Specialists: ji Naejra Preferred Pharmacy: [facility] Insurance: MMO Prescription Benefit: yes Living Will/HPOA: yes, son Joe Esquivel LNOK: son Living Arrangements: Patient lives with son in a 2 story home with bed and bath on first floor. 1 step to enter the home. Patient states he is independent at home. Transportation: son DME/HHC: Patient states she has raised toilet, cane, walker, grab bars, glucometer with supplies, and insulin and supplies. Patient states he has had HHC in [place] in the past. Disposition Plan: Patient to discharge home with family support and follow-up plans in place. Marisela PATEL, RN, CM
[2022-09-10 19:11] LABS: Bedside Glucose 363 mg/dL (74-106)
[2022-09-10] MEDS: Insulin Glargine-YFGN 100 UNIT/ML Pen 25 UNIT SC (21:51)
[2022-09-10 23:51] LABS: Bedside Glucose 276 mg/dL (74-106)
[2022-09-11] VITALS (8 sets, daily range): BP systolic 110–158; BP diastolic 74–90; PULSE 56–92; RESP 15–17; TEMP 36.5–36.6; O2SAT 95–100
[2022-09-11 07:25] LABS: Bedside Glucose 49 mg/dL (74-106)
[2022-09-11 07:25] LABS: Bedside Glucose 84 mg/dL (74-106)
[2022-09-11 07:41] LABS: Absolute Lymphocyte Count 1.43 X10^3/uL (0.83-4.51); Absolute Neutrophil Count 2.7 X10^3/uL (2.0-7.7); Basophil# 0.02 X10^3/uL; Basophil% 0.4 % (0-1); Eosinophil# 0.23 X10^3/uL; Eosinophils% 4.8 % (0-5); Hematocrit 35.3 % (40-54); Hemoglobin 12.3 g/dL (13.0-16.5); Lymphocyte # 1.43 X10^3/ul (0.83-4.51); Lymphocyte % 29.6 % (19-41); Mean Corp Hgb Conc 34.8 g/dL (32-36); Mean Corpuscular Hgb 29.9 pg (27.0-32.0); Mean Corpuscular Volume 85.7 fL (80-94); Mean Platelet Vol. 12.4 fl (6.2-12.0); Monocyte# 0.44 X10^3/uL; Monocyte% 9.1 % (0-10); NRBC Flagged by Analyzer 0 % (0-5); Neutrophil # 2.69 X10^3/uL (2.7-7.7); Neutrophil % 55.7 % (47-70); Platelet Count 202 K/mm3 (150-450); RBC Distribution Width SD 40.6 fl (35.1-43.9); Red Blood Count 4.12 M/mm3 (4.6-6.2); White Blood Count 4.8 K/mm3 (4.4-11.0)
[2022-09-11 07:50] LABS: Anion Gap 6 (5-15); BUN 13 mg/dL (7-18); BUN/Creat Ratio 15.6 RATIO (10-20); Calcium,Total 8.6 mg/dL (8.5-10.1); Chloride 109 mmol/L (98-107); Creatinine, Serum 0.83 mg/dL (0.70-1.30); EST Glomerular Filtration Rate 98 mL/min (>60); Est Glom Filt Rate - Afr Amer 119 mL/min (>60); Estimated Creatinine Clearance 89.17 ml/min; Glucose 46 mg/dL (74-106); Potassium 3.6 mmol/L (3.5-5.1); Sodium Level 138 mmol/L (136-145)
[2022-09-11] MEDS: 0.9% Normal Saline 1,000 ML 75 ML IV (08:15)
[2022-09-11] MEDS: Aspirin 81 MG TAB.CHEW PO (08:16)
--- NOTE | 2022-09-11 09:03 | PCM.PN.HOSP ---
Subjective Subjective Feels well. They did orthostatics on him today and he felt fine. Blood sugar was low at 46. Objective Data Objective Data Vital Signs: Vital Signs Temp Pulse Resp BP Pulse Ox O2 Del Method 36.6 C 77 15 156/90 H 95 Room Air 09/11/22 03:08 09/11/22 07:00 09/11/22 03:08 09/11/22 03:08 09/11/22 07:45 09/11/22 07:45 Oxygen Delivery Method Room Air Weight: 74.9 kg Body Mass Index (BMI) 23.6 Intake & Output: Intake and Output for Last 24 Hours 09/09/22 09/10/22 09/11/22 23:59 23:59 23:59 Intake Total 1000 / 1000 3097.5 / 3097.5 1396.25 / 1396.25 Output Total 3225 / 3225 3050 / 3050 Balance 1000 / 1000 -127.5 / -127.5 -1653.75 / -1653.75 Lab / Micro Data Result Diagrams: 09/11/22 05:33 09/11/22 05:33 Labs: Laboratory Results - last 24 hr 09/10/22 11:19: POC Glucose 302 H 09/10/22 16:09: POC Glucose 363 H 09/10/22 21:49: POC Glucose 276 H 09/11/22 05:33: WBC 4.8, RBC 4.12 L, Hgb 12.3 L, Hct 35.3 L, MCV 85.7, MCH 29.9, MCHC 34.8, RDW Std Deviation 40.6, RDW Coeff of Tyrese 13.0, Plt Count 202, MPV 12.4 H, Immature Gran % (Auto) 0.400, Neut % (Auto) 55.7, Lymph % (Auto) 29.6, [place] % (Auto) 9.1, Eos % (Auto) 4.8, Baso % (Auto) 0.4, Absolute Neuts (auto) 2.7, Absolute Lymphs (auto) 1.43, Nucleated RBC % 0 09/11/22 05:33: Sodium 138, Potassium 3.6, Chloride 109 H, Carbon Dioxide 23.0, Anion Gap 6, BUN 13, Creatinine 0.83, Estim Creat Clear Calc 89.17, Est GFR (MDRD) Af Amer 119, Est GFR (MDRD) Non-Af 98, BUN/Creatinine Ratio 15.6, Glucose 46 L, Calcium 8.6 09/11/22 06:46: POC Glucose 49 L 09/11/22 07:04: POC Glucose 84 Micro: Microbiology 09/09/22 20:34 Nasal Secretion SARS-CoV-2 & FLU Antigen (Rapid) - Final Radiography Diagnostic Testing: Radiology Impression Echocardiogram 09/09/22 23:57 Interpretation Summary The estimated ejection fraction is 65 %. Trivial mitral valve insufficiency. Ordering Physician: Burton Rowley Referring Physician: DEVI PCP Performed By: Anabela Mcneil RCS Rhythm Strip Rhythm Strip: Sinus Rhythm Rate: 82 Ectopy: None Physical Exam Const alert and no apparent distress Resp normal respiratory effort, no retractions, no use of accessory muscles and clear to auscultation bilaterally Cardio regular rate, regular rhythm, S1 normal heart sound and S2 normal heart sound GI normal to inspection, nondistended, normoactive bowel sounds, soft to palpation, non-tender and non-distended Assessment & Plan Assessment/Plan (1) DKA, type 1: QUALIFIERS: Diabetes mellitus complication detail: without coma Qualified Code(s): E10.10 - Type 1 diabetes mellitus with ketoacidosis without coma PLAN: DKA type I Reports hyperglycemia at home with multiple use of insulin without improvement Initial serum glucose was 457 Initial anion gap of 16. With lead patient anion gap dropped to 9. His blood glucose dropped to 237 and repeat fingerstick dropped to 150. Initial sodium of 127 making corrected sodium of 133. A1c on presentation was 8.5. Patient was adult onset of diabetes so the patient is more of a insulin-dependent diabetic those described to me that he was characterized as 1.5 by his physicians in [place]. Currently his glucose is overall doing better though this most recent was in the 300s. Patient on 20 units of insulin glargine daily plus sliding scale insulin. Increase glargine to 25 09/11: To have hypoglycemia down to 46 and require treatment. We will change her back over to the 20 units. Patient to follow-up with Dr. Najera as outpatient and may get placed back on insulin pump at a later point. (2) ILANA (acute kidney injury): PLAN: Resolved Improving with IVF. Initial creatinine presentation was 1.7. IV fluid hydration. Trend BMP. Avoid nephrotoxins. Home losartan and hydrochlorothiazide held. (3) Syncope: PLAN: Syncope EKG showed sinus rhythm. Admit on telemetry. Echocardiogram ordered. Initial troponin was negative. Orthostatic vitals continue to be positive but patient is feeling well. (4) Orthostatic hypotension: PLAN: Patient was able to pull up his list and I verified the patient is taking carvedilol 12.5 mg twice daily plus metoprolol succinate 100 mg daily and losartan/HCTZ and amlodipine. Will discontinue the carvedilol given the orthostasis. Also discontinue the amlodipine and losartan/HCTZ Continue the metoprolol succinate but at 50 mg/day. Will need to allow for permissive hypertension PLAN: Plan Hypertension: Given orthostatic hypotension, will need to allow for permissive hypertension. Discharge home. [facility] and with Dr. Najera for his diabetes.
[2022-09-11] MEDS: Metoprolol(XL)Succ 50 MG Tablet PO (09:30)
[2022-09-11] MEDS: guaiFENesin 1,200 MG Tablet 1200 MG PO (09:30)
[2022-09-11] MEDS: Tamsulosin HCl 0.4 MG Capsule PO (09:30)
[2022-09-11] MEDS: Escitalopram Oxalate 10 MG Tablet PO (09:30)
[2022-09-11] MEDS: Enoxaparin 40 MG/0.4 ML Syringe SC (09:31)
--- NOTE | 2022-09-11 10:30 | DCINST_ITS ---
Discharge Instructions Diet Discharge Diet: 2000 Calorie Control Diet Activity Additional Activity Instructions:: Get up slowly when standing Dressing / Incision Call your doctor if you observe: Fainting spells Follow [facility] Test Results: Test results from this visit will be discussed in further detail at your follow- up appointment, if applicable. Discharge Plan Admission Admit Date/Time: 09/09/22 22:38 Primary Reason for Your Visit: Syncope. Acute kidney injury. Attending Provider: Sergio Moore Primary Care Provider: Care Physician,No Primary Consulting Providers: Burton Rowley Discharge Orders/Prescriptions Prescriptions: Continued tamsulosin 0.4 mg capsule 0.4 mg PO DAILY escitalopram oxalate 10 mg tablet 10 mg PO DAILY (DME) Dexcom G6 Sensor Device See Rx Instructions .Route Qty: 9 1RF Rx Instructions: 1 sensor q 10 days (DME) Dexcom G6 Transmitter Device See Rx Instructions .Route Qty: 1 1RF Rx Instructions: 1 transmitter q 90 days aspirin 81 mg Tablet 81 mg PO DAILY insulin lispro [Humalog KwikPen Insulin] 100 unit/mL Insulin Pen SUBCUT Rx Instructions: Patient states does Carbo counting to determine how much to take Changed metoprolol succinate 100 mg Tablet Extended Release 24 Hr 50 mg PO DAILY Qty: 30 0RF insulin glargine [Lantus Solostar U-100 Insulin] 100 unit/mL (3 mL) insulin pen 20 unit subcut QHS Qty: 15 0RF Discontinued carvedilol 25 mg tablet 12.5 mg PO BID Rx Instructions: must administer with a meal/food amlodipine 5 mg tablet 5 mg PO DAILY losartan-hydrochlorothiazide 100-25 mg Tablet 1 tab PO DAILY Referrals / Follow Up: Lamine Najera MD [Med Staff - Courtesy Staff] - 09/22/22 2:45 pm Care Physician,No Primary [Primary Care Provider] - Disposition Disposition (needs filled in before D/C Order can be placed): Home, Self Care
--- NOTE | 2022-09-11 10:35 | PCM.DC.SUM ---
Providers Date of Admission: 09/09/22 Primary Care Physician: No Primary Care Phys Reason For Visit: HYPERGLYCEMIA, ILANA Diagnosis Discharge Diagnosis (1) DKA, type 1: Status: Acute Code(s): E10.10 - Type 1 diabetes mellitus with ketoacidosis without coma Qualifiers: Diabetes mellitus complication detail: without coma Qualified Code(s): E10.10 - Type 1 diabetes mellitus with ketoacidosis without coma Plan: DKA type I Reports hyperglycemia at home with multiple use of insulin without improvement Initial serum glucose was 457 Initial anion gap of 16. With lead patient anion gap dropped to 9. His blood glucose dropped to 237 and repeat fingerstick dropped to 150. Initial sodium of 127 making corrected sodium of 133. A1c on presentation was 8.5. Patient was adult onset of diabetes so the patient is more of a insulin-dependent diabetic those described to me that he was characterized as 1.5 by his physicians in [place]. Currently his glucose is overall doing better though this most recent was in the 300s. Patient on 20 units of insulin glargine daily plus sliding scale insulin. Increase glargine to 25 09/11: To have hypoglycemia down to 46 and require treatment. We will change her back over to the 20 units. Patient to follow-up with Dr. Najera as outpatient and may get placed back on insulin pump at a later point. (2) ILANA (acute kidney injury): Status: Acute Code(s): N17.9 - Acute kidney failure, unspecified Plan: Resolved Improving with IVF. Initial creatinine presentation was 1.7. IV fluid hydration. Trend BMP. Avoid nephrotoxins. Home losartan and hydrochlorothiazide held. (3) Syncope: Status: Acute Code(s): R55 - Syncope and collapse Plan: Syncope EKG showed sinus rhythm. Admit on telemetry. Echocardiogram ordered. Initial troponin was negative. Orthostatic vitals continue to be positive but patient is feeling well. (4) Orthostatic hypotension: Status: Acute Code(s): I95.1 - Orthostatic hypotension Plan: Patient was able to pull up his list and I verified the patient is taking carvedilol 12.5 mg twice daily plus metoprolol succinate 100 mg daily and losartan/HCTZ and amlodipine. Will discontinue the carvedilol given the orthostasis. Also discontinue the amlodipine and losartan/HCTZ Continue the metoprolol succinate but at 50 mg/day. Will need to allow for permissive hypertension Plan Hypertension: Given orthostatic hypotension, will need to allow for permissive hypertension. Discharge home. [facility] and with Dr. Najera for his diabetes. Medications at Discharge Home Medications blood-glucose sensor (Dexcom G6 Sensor device) #9 ea 09/08/22 blood-glucose transmitter (Dexcom G6 Transmitter device) #1 ea 09/08/22 escitalopram oxalate 10 mg tablet 10 mg PO DAILY depression 09/08/22 tamsulosin 0.4 mg capsule 0.4 mg PO DAILY prostate 09/08/22 aspirin 81 mg tablet 81 mg PO DAILY 09/10/22 insulin lispro 100 unit/mL subcutaneous pen (Humalog KwikPen (U-100) Insulin) subcut 09/10/22 insulin glargine 100 unit/mL (3 mL) subcutaneous pen (Lantus Solostar U-100 Insulin) 20 unit (0.2 mL) subcut QHS #15 mL 09/11/22 metoprolol succinate 100 mg tablet,extended release 24 hr 50 mg PO DAILY #30 tabs 09/11/22 Hospital Course Operations None Procedures None Summary of Care Provided Minutes Spent on Discharge: 34 Weight / BMI Weight Weight: 74.9 kg Body Mass Index (BMI) 23.6 ABG / Lab / Microbiology Data Result Diagrams: 09/11/22 05:33 09/11/22 05:33 Laboratory: Laboratory Results - last 24 hr 09/10/22 11:19: POC Glucose 302 H 09/10/22 16:09: POC Glucose 363 H 09/10/22 21:49: POC Glucose 276 H 09/11/22 05:33: WBC 4.8, RBC 4.12 L, Hgb 12.3 L, Hct 35.3 L, MCV 85.7, MCH 29.9, MCHC 34.8, RDW Std Deviation 40.6, RDW Coeff of Tyrese 13.0, Plt Count 202, MPV 12.4 H, Immature Gran % (Auto) 0.400, Neut % (Auto) 55.7, Lymph % (Auto) 29.6, [place] % (Auto) 9.1, Eos % (Auto) 4.8, Baso % (Auto) 0.4, Absolute Neuts (auto) 2.7, Absolute Lymphs (auto) 1.43, Nucleated RBC % 0 09/11/22 05:33: Sodium 138, Potassium 3.6, Chloride 109 H, Carbon Dioxide 23.0, Anion Gap 6, BUN 13, Creatinine 0.83, Estim Creat Clear Calc 89.17, Est GFR (MDRD) Af Amer 119, Est GFR (MDRD) Non-Af 98, BUN/Creatinine Ratio 15.6, Glucose 46 L, Calcium 8.6 09/11/22 06:46: POC Glucose 49 L 09/11/22 07:04: POC Glucose 84 Microbiology: Microbiology 09/09/22 20:34 Nasal Secretion SARS-CoV-2 & FLU Antigen (Rapid) - Final Radiography Diagnostic Testing: Radiology Impression Echocardiogram 09/09/22 23:57 Interpretation Summary The estimated ejection fraction is 65 %. Trivial mitral valve insufficiency. Ordering Physician: Burton Rowley Referring Physician: DEVI PCP Performed By: Anabela Mcneil RCS D/C Instructions Discharge Diet: 2000 Calorie Control Diet Additional Activity Instructions: Get up slowly when standing Call your doctor if you observe: Fainting spells When: [facility] . Meaningful Use Info Meaningful Use Diagnoses (Choose all that apply): None applicable Discharge Plan Admission Admit Date/Time: 09/09/22 22:38 Primary Reason for Your Visit: Syncope. Acute kidney injury. Attending Provider: Sergio Moore Primary Care Provider: Care Physician,No Primary Consulting Providers: Burton Rowley Discharge Orders/Prescriptions Prescriptions: Continued tamsulosin 0.4 mg capsule 0.4 mg PO DAILY escitalopram oxalate 10 mg tablet 10 mg PO DAILY (DME) Dexcom G6 Sensor Device See Rx Instructions .Route Qty: 9 1RF Rx Instructions: 1 sensor q 10 days (DME) Dexcom G6 Transmitter Device See Rx Instructions .Route Qty: 1 1RF Rx Instructions: 1 transmitter q 90 days aspirin 81 mg Tablet 81 mg PO DAILY insulin lispro [Humalog KwikPen Insulin] 100 unit/mL Insulin Pen SUBCUT Rx Instructions: Patient states does Carbo counting to determine how much to take Changed metoprolol succinate 100 mg Tablet Extended Release 24 Hr 50 mg PO DAILY Qty: 30 0RF insulin glargine [Lantus Solostar U-100 Insulin] 100 unit/mL (3 mL) insulin pen 20 unit subcut QHS Qty: 15 0RF Discontinued carvedilol 25 mg tablet 12.5 mg PO BID Rx Instructions: must administer with a meal/food amlodipine 5 mg tablet 5 mg PO DAILY losartan-hydrochlorothiazide 100-25 mg Tablet 1 tab PO DAILY Referrals / Follow Up: Lamine Najera MD [Med Staff - Courtesy Staff] - 09/22/22 2:45 pm Care Physician,No Primary [Primary Care Provider] - Disposition Disposition (needs filled in before D/C Order can be placed): Home, Self Care Charges/Coding Visit Charges Inpatient E&M: 41719 Disch Hosp >30min
[2022-09-11] MEDS: Insulin Lispro 100 UNIT/ML INSULN.PEN SC (11:30)
[2022-09-11 11:40] LABS: Bedside Glucose 326 mg/dL (74-106)
== END 2022-09-11 12:33 | disposition home or self-care (01) | DRG 638 ==
LOC: ED 22:31 → PCU 23:03
PROVIDERS: Admitting Provider Hospitalist; Emergency Provider Emergency Medicine
DX: E10.10 Type 1 diabetes mellitus with ketoacidosis without coma (principal); N17.9 Acute kidney failure, unspecified; E10.649 Type 1 diabetes mellitus with hypoglycemia without coma; E10.22 Type 1 diabetes mellitus with diabetic chronic kidney disease; Z79.4 Long term (current) use of insulin; I12.9 Hypertensive chronic kidney disease with stage 1 through stage 4 chronic kidney disease, or unspecified chronic kidney disease; I95.1 Orthostatic hypotension; N18.2 Chronic kidney disease, stage 2 (mild); Z82.3 Family history of stroke; Z87.891 Personal history of nicotine dependence; Z86.73 Personal history of transient ischemic attack (TIA), and cerebral infarction without residual deficits
CPT/HCPCS: 36415; 70450; 71045; 80048; 81001; 82962; 84484; 85025; 87428; 93005; 93306; 97802; 99285; J2997; J7030; J7040; A4216; J3490

== ENCOUNTER 2022-11-18 10:22 | Emergency (ER) | payer OTHER, SELFPAY ==
[2022-11-18] VITALS (8 sets, daily range): BP systolic 112–198; BP diastolic 70–108; PULSE 57–81; RESP 11–19; TEMP 36.1; O2SAT 96–99; BMI 22.3
--- NOTE | 2022-11-18 10:49 | EKG12_ITS ---
Test Reason : HIGH BP Blood Pressure : / mmHG Vent. Rate : 063 BPM Atrial Rate : 063 BPM P-R Int : 184 ms QRS Dur : 080 ms QT Int : 434 ms P-R-T Axes : 088 001 076 degrees QTc Int : 444 ms Normal sinus rhythm Normal ECG Confirmed by DIANE TERAN, MANISH ([id number]), editor producer DONAL ROCK ([id number]) on 11/22/2022 12:13:10 P M Referred By: Confirmed By:KEELY CONTRERAS MD
--- NOTE | 2022-11-18 10:52 | EDS_ITS ---
HPI History of Present Illness Chief Complaint: Hypertension Informant: patient and family (son) Narrative Narrative: Patient presents because his blood pressure has been high. Son provides most of the information, he states that the patient has been living with him for the past 4 months, and his pressure has been high much of the time. It was low at 1 point, he was seen here in the hospital and taken off of all of his medications, and he has been adding them back on currently on metoprolol and another 1 that is unknown right now. He intermittently has a sudden right temporal head pain along with numbness in his right hand that lasts for about 30 seconds. He states it occurs on average may be once a month to once a week, the last episode was the day before yesterday, and in the last month he has had 4 or 5 episodes according to the son who was trying to log all of this. He states blood pressures are of been running high recently, 190s today. Compliant with the medications he is post to currently be on, which overall as an outpatient are managed by the [facility]. He saw cardiology at the [facility] within the past month or 2 and had an echocardiogram that showed some calcifications on some valves but they have been giving no other information just that the medical technician was concerned about it. He has had no chest pain or shortness of breath orthopnea. He denies any vision changes when he gets the temporal pain which she does not currently have. Residual stroke deficits sound like cough cognitive issues as well as some mild numbness in the left side of his face. This has been for at least 4 months. [facility] Medical History Cognitive impairment Depression Diabetes DKA, type 1 Hypertension Irregular heart beat Kidney disease Orthostatic hypotension Seizures Stroke/cerebrovascular accident Uncontrolled type 1 diabetes mellitus Home Medications blood-glucose sensor (Dexcom G6 Sensor device) #9 ea 09/08/22 [Rx Last Taken Unknown] blood-glucose transmitter (Dexcom G6 Transmitter device) #1 ea 09/08/22 [Rx Last Taken Unknown] escitalopram oxalate 10 mg tablet 10 mg PO DAILY depression 09/08/22 [History Last Taken Unknown] tamsulosin 0.4 mg capsule 0.4 mg PO DAILY prostate 09/08/22 [History Last Taken Unknown] aspirin 81 mg tablet 81 mg PO DAILY 09/10/22 [History Last Taken Unknown] insulin lispro 100 unit/mL subcutaneous pen (Humalog KwikPen (U-100) Insulin) subcut 09/10/22 [History Last Taken Unknown] insulin glargine 100 unit/mL (3 mL) subcutaneous pen (Lantus Solostar U-100 Insulin) 20 unit (0.2 mL) subcut QHS #15 mL 09/11/22 [Rx Last Taken Unknown] metoprolol succinate 100 mg tablet,extended release 24 hr 50 mg PO DAILY 09/28/22 [History Last Taken Unknown] clonidine HCl 0.1 mg tablet 0.1 mg PO BID #60 tabs 11/18/22 [Rx Last Taken Unknown] Allergy/AdvReac Type Severity Reaction Status Date / Time No Known Allergies Allergy Verified 11/18/22 10:26 Family History Other CVA (cerebral vascular accident) Colon cancer Diabetes Hypertension Social History household members: family Smoking Status: Former smoker alcohol intake: former substance use type: does not use ROS ROS ED Constitutional Constitutional ED: Denies chills or fever(s) Eyes Eyes: Denies change in vision or diplopia ENT ENT ED: Denies rhinorrhea or sore throat Cardiovascular Cardiovascular: Reports orthostatic symptoms and other Details: Orthostatic symptoms have been chronic whenever he stands up, it does go away and he has never passed out from it ; Denies chest pain or palpitations Respiratory/Chest Respiratory/Chest: Denies cough or dyspnea Gastrointestinal Gastrointestinal: Denies abdominal pain, diarrhea, nausea or vomiting Genitourinary Genitourinary ED: Denies dysuria or hematuria Musculoskeletal Musculoskeletal: Denies back pain or neck pain Integumentary Denies abscess or rash Neurologic Neurologic: Reports headache(s) and paresthesias; Denies weakness Psychiatric Psychiatric: Denies anxiety or suicidal thoughts EXAM Physical Exam Const Vital Signs: 11/18/22 10:24 11/18/22 10:36 11/18/22 10:36 Temperature 97 F L Temperature Source Temporal Pulse Rate 81 64 Respiratory Rate 18 17 Respiratory Effort Normal Non-Labored Respiratory Pattern Normal Blood Pressure 198/108 H 180/94 H Blood Pressure Mean 138 122 Pulse Ox 98 97 Oxygen Delivery Method Room Air Room Air 11/18/22 11:13 11/18/22 12:04 11/18/22 12:35 Temperature Temperature Source Pulse Rate 63 60 Respiratory Rate 16 14 Respiratory Effort Respiratory Pattern Blood Pressure 135/84 H 123/82 H Blood Pressure Mean 101 95 Pulse Ox 96 99 96 Oxygen Delivery Method Room Air Room Air Room Air 11/18/22 12:42 11/18/22 13:40 Temperature Temperature Source Pulse Rate 59 L 57 L Respiratory Rate 11 L 19 H Respiratory Effort Respiratory Pattern Blood Pressure 113/76 112/76 Blood Pressure Mean 88 Pulse Ox 97 96 Oxygen Delivery Method Room Air Positive well nourished and well developed General Appearance ED: well developed and NAD HEENT Reports moist mucous membranes HEENT Narrative: No temporal artery tenderness or palpable cord or other abnormality. normocephalic and atraumatic Eyes PERRL and EOMs intact bilaterally Neck full ROM and supple Resp normal respiratory effort and clear to auscultation bilaterally Cardio regular rate, regular rhythm and no murmurs Rate: Negative for tachycardic GI non-tender and non-distended Auscultation: normoactive bowel sounds Palpation: soft Back/Spine no CVA tenderness General Back: other FROM Extremity normal to inspection General Extremety ED: Negative for edema, pulses abnormal or tenderness General Extremity: Negative for edema or pulses abnormal Neuro oriented x3, CN's II-XII intact bilaterally and no sensory deficits noted Neuro Narrative: Normal speech. No aphasia. Light subjective paresthesias left side of face on ly. Normal [id number] and [id number]. NIHSS 1 for the paresthesias only. Sensorium / Orientation: awake and alert Motor Exam: strength 5/5 throughout Psych mental status grossly normal Skin no rashes or lesions noted and no wounds MDM MDM MDM Narrative Medical decision making narrative: Initially the patient's blood pressure was 198/108. While working the patient up including CT of the head, I gave him clonidine 0.2 mg orally and observed him. On repeat evaluation his blood pressure is approximately 112/76 and has been stable in that area for several readings. He was able to take a nap and was easily arousable. The rest was work-up was unremarkable except for hyperglycemia, we rechecked this prior to giving him insulin and it was 265, family stated they gave him 7 units of insulin prior to coming here so I do not think he needs anymore right now, they are pretty adept at keeping an eye on his blood sugar and treating it. At this time I see no reason to admit him. In reviewing his home medications from the list that the son has with him, he is currently on metoprolol succinate 50 mg nightly and losartan 50 mg every morning, the latter have which started 2 or 3 weeks ago. I am going to add clonidine 0.1 mg twice daily to his regimen until [facility]. Son is comfortable with that plan, I see no reason to admit him at this time his symptoms been going on for couple years intermittently. Chest x-ray 1 view on my interpretation negative for any acute. Radiology in agreement. I reviewed the CT images, they do not appear to show any type of acute stroke or hemorrhage, radiology was in agreement and I agree with their interpretation. Lab Data Attestation: I reviewed the patient's lab results. Labs: Laboratory Results - last 24 hr 11/18/22 11/18/22 11/18/22 10:55 10:55 11:20 WBC 5.4 RBC 4.39 L Hgb 12.8 L Hct 37.9 L MCV 86.3 MCH 29.2 MCHC 33.8 RDW Std Deviation 40.9 RDW Coeff of Tyrese 13.1 Plt Count 197 MPV 12.1 H Immature Gran % (Auto) 0.400 Neut % (Auto) 66.7 Lymph % (Auto) 18.8 L [place] % (Auto) 8.3 Eos % (Auto) 5.1 H Baso % (Auto) 0.7 Absolute Neuts (auto) 3.6 Absolute Lymphs (auto) 1.02 Nucleated RBC % 0 Sodium 135 L Potassium 4.5 Chloride 102 Carbon Dioxide 26.0 Anion Gap 7 BUN 13 Creatinine 1.07 Estim Creat Clear Calc 66.96 Est GFR (MDRD) Af Amer 89 Est GFR (MDRD) Non-Af 73 BUN/Creatinine Ratio 12.1 Glucose 314 H Calcium 9.2 Troponin I High Sens 5 POC Glucose 265 H Radiography Diagnostic Testing: Clinical Impression(s) from Imaging Studies Brain CT 11/18/22 11:42 IMPRESSION: No acute intracranial process identified. Chronic involutional and white matter changes. Electronically Signed: Sheila Taveras MD at 12:02 EDT , ADDENDUM: 11/18/22 1212 IMPRESSION: No acute intracranial process identified. Chronic involutional and white matter changes. N.B. : The above Results were Read Back by Sheila Taveras MD to Omar Garcia MD, and understanding confirmed on 11/18/2022 12:06:00 (ET). Electronically Signed: Sheila Taveras MD at 12:02 EDT , Chest X-Ray 11/18/22 11:46 IMPRESSION: Normal x-ray examination of the chest. Electronically Signed: Davonte Bar MD at 11:59 EDT , Rhythm Strip Rhythm Strip: Sinus Rhythm Rate: 65 Ectopy: None EKG Initial EKG: Attestation: I personally reviewed and interpreted this EKG as follows: Interpretation: Sinus Rhythm and No Acute Injury Pattern Prior EKG tracings: available for review Prior: Unchanged Discharge Plan Triage Chief Complaint: Hypertension ED Provider: Omar Garcia Dx/Rx/DC Orders Clinical Impression: Accelerated hypertension, Hyperglycemia due to type 1 diabetes mellitus Instructions: ED Hypertension, Established Prescriptions: New clonidine HCl 0.1 mg tablet 0.1 mg PO BID Qty: 60 0RF No Action tamsulosin 0.4 mg capsule 0.4 mg PO DAILY escitalopram oxalate 10 mg tablet 10 mg PO DAILY (DME) Dexcom G6 Sensor Device See Rx Instructions .Route Qty: 9 1RF Rx Instructions: 1 sensor q 10 days (DME) Dexcom G6 Transmitter Device See Rx Instructions .Route Qty: 1 1RF Rx Instructions: 1 transmitter q 90 days metoprolol succinate 100 mg tablet extended release 24 hr 50 mg PO DAILY aspirin 81 mg Tablet 81 mg PO DAILY insulin lispro [Humalog KwikPen Insulin] 100 unit/mL Insulin Pen SUBCUT Rx Instructions: Patient states does Carbo counting to determine how much to take insulin glargine [Lantus Solostar U-100 Insulin] 100 unit/mL (3 mL) insulin pen 20 unit subcut QHS Qty: 15 0RF [facility] Provider: [facility] Referrals: Doctor,Your [Non-Staff] - (Within the next week call for appointment) Disposition Disposition: Home, Self Care
[2022-11-18 11:09] LABS: Absolute Lymphocyte Count 1.02 X10^3/uL (0.83-4.51); Absolute Neutrophil Count 3.6 X10^3/uL (2.0-7.7); Basophil# 0.04 X10^3/uL; Basophil% 0.7 % (0-1); Eosinophil# 0.28 X10^3/uL; Eosinophils% 5.1 % (0-5); Hematocrit 37.9 % (40-54); Hemoglobin 12.8 g/dL (13.0-16.5); Lymphocyte # 1.02 X10^3/ul (0.83-4.51); Lymphocyte % 18.8 % (19-41); Mean Corp Hgb Conc 33.8 g/dL (32-36); Mean Corpuscular Hgb 29.2 pg (27.0-32.0); Mean Corpuscular Volume 86.3 fL (80-94); Mean Platelet Vol. 12.1 fl (6.2-12.0); Monocyte# 0.45 X10^3/uL; Monocyte% 8.3 % (0-10); NRBC Flagged by Analyzer 0 % (0-5); Neutrophil # 3.63 X10^3/uL (2.7-7.7); Neutrophil % 66.7 % (47-70); Platelet Count 197 K/mm3 (150-450); RBC Distribution Width CV 13.1 % (11.6-14.6); RBC Distribution Width SD 40.9 fl (35.1-43.9); Red Blood Count 4.39 M/mm3 (4.6-6.2); White Blood Count 5.4 K/mm3 (4.4-11.0)
[2022-11-18] MEDS: cloNIDine HCl 0.2 MG Tablet PO (11:26)
[2022-11-18] MEDS: Lisinopril 10 MG Tablet PO (11:26)
[2022-11-18 11:32] LABS: Anion Gap 7 (5-15); BUN 13 mg/dL (7-18); BUN/Creat Ratio 12.1 RATIO (10-20); Calcium,Total 9.2 mg/dL (8.5-10.1); Chloride 102 mmol/L (98-107); Creatinine, Serum 1.07 mg/dL (0.70-1.30); EST Glomerular Filtration Rate 73 mL/min (>60); Est Glom Filt Rate - Afr Amer 89 mL/min (>60); Estimated Creatinine Clearance 66.96 ml/min; Glucose 314 mg/dL (74-106); Potassium 4.5 mmol/L (3.5-5.1); Sodium Level 135 mmol/L (136-145); Troponin-I HS 5 pg/mL (3.0-78.0)
[2022-11-18 11:40] LABS: Bedside Glucose 265 mg/dL (74-106)
--- NOTE | 2022-11-18 11:42 | CT_ITS ---
We are attempting to reach an attending provider to discuss findings. An addendum with communication details will be sent when the communication is complete. HISTORY: Neuro deficit, acute, stroke suspected. TECHNIQUE: Multiple axial images were obtained of the head without intravenous contrast. A radiation dose optimization technique was used for this scan. 257 images. COMPARISON: 09/09/2022. FINDINGS: BRAIN PARENCHYMA: Multiple foci and zones of low attenuation in the bilateral cerebral white matter compatible with chronic small vessel ischemic gliosis. No acute intra-axial hemorrhage identified. CSF SPACES: Generalized volume loss. No midline shift or other significant mass effect. No acute extra-axial hemorrhage seen. OTHER: Intact calvarium. Mild mucosal thickening in the right maxillary sinus. Bilateral lens resections. ASPECTS Score for Acute Strokes: 10 CT/STROKE Brain/Head without Cont IMPRESSION: No acute intracranial process identified. Chronic involutional and white matter changes. Electronically Signed: Sheila Taveras MD at 12:02 EDT ,
--- NOTE | 2022-11-18 11:46 | RAD_ITS ---
STUDY: X-RAY CHEST REASON FOR EXAM: Male, 67 years old. Fever and cough TECHNIQUE: Single AP portable view of the chest. COMPARISON: 09/09/2022 FINDINGS: EKG leads overlie the chest The lungs are clear and expanded. There is no demonstrated pleural abnormality. Normal size heart. Normal mediastinum and verenice. Normal visualized pulmonary arteries. Normal visualized aortic arch and descending thoracic aorta. Normal visualized thoracic spine. Normal visualized ribs, clavicles, and shoulders. There is no demonstrated abnormality of the visualized soft tissue structures of the upper abdomen. RAD/Chest 1 View IMPRESSION: Normal x-ray examination of the chest. Electronically Signed: Davonte Bar MD at 11:59 EDT ,
[2022-11-18 14:06] LABS: Bedside Glucose 193 mg/dL (74-106)
--- NOTE | 2022-11-18 14:08 | ED.RN ---
PT DISCHARGED UPON GETTING UP OUT OF BED. PT STATED HE FELT NUMBNESS AND TINGLING ON RIGHT ARM AND SIDE OF FACE. THIS RN OFFERED TO GET DOCTOR VIRGILIO AND CHECKED BP. PT SAT ON SIDE OF BED BP 113/70. PT VERBALIZES I WANT TO GO HOME. PT GOT UP AND WALKED OUT INDEPENDENTLY STATING HIS NUMBNESS WAS GOING AWAY AND HAS BEEN HAPPENING FOR A WHILE. PT LEFT [facility] OUT TRIAGE DOORS WITHOUT ASSISTANCE.
--- NOTE | 2022-11-18 14:55 | ED.RN ---
PT DAUGHTER IN LAW CALLS INTO THE ED WITH CONCERN ABOUT PT BEING DISCHARGED HOME, AND STILL HAVING EPISODES OF INTERMITTENT DIZZINESS. DAUGHTER IN LAW THEN GIVES PHONE TO THE SON, PT SKINNYA WITH CONCERNS ABOUT PT NOT BEING ABLE TO WALK AND EXPERIENCING DIZZINESS WHEN GETTING UP. THIS RN REVIEWED DR. GARCIA AND DISCHARGE PAPER WORK. PT SON RE-EDUCATED ON DISCHARGE PAPERWORK INSTRUCTIONS, EDUCATED ON CHANGING POSITION SLOWLY AND MAINTAINING BLOOD GLUCOSE. ALSO EDUCATED THAT IF THE PT CONTINUES TO HAVE SX, OR NEW OR WORSENED SX THAT HE IS WELCOME TO COME BACK TO THE EMERGENCY DEPARTMENT FOR RE-EVALUATION. SON ALSO EDUCATED TO BE SURE THAT HE FO[facility] WITH [facility] SO[facility] POSSIBLE.
== END 2022-11-18 13:58 | disposition home or self-care (01) ==
PROVIDERS: Emergency Provider Emergency Medicine; Visit Provider Emergency Medicine
DX: I10 Essential (primary) hypertension (principal); E10.65 Type 1 diabetes mellitus with hyperglycemia; Z87.891 Personal history of nicotine dependence; Z86.73 Personal history of transient ischemic attack (TIA), and cerebral infarction without residual deficits; Z79.82 Long term (current) use of aspirin
CPT/HCPCS: 70450; 71045; 80048; 82962; 84484; 85025; 93005; 99285; A4216

== ENCOUNTER 2022-11-29 19:46 | Emergency (ER) | payer OTHER, SELFPAY ==
[2022-11-29 19:47] VITALS: BP 163/85; PULSE 84; RESP 16; TEMP 36.7; O2SAT 99; BMI 22.9
--- NOTE | 2022-11-29 20:03 | CT_ITS ---
INDICATION: Seizure EXAMINATION: CT BRAIN - CT Head or Brain W/O Contrast Injection TECHNIQUE: Multiple axial images were obtained of the head without intravenous contrast. A radiation dose optimization technique was used for this scan. IV Contrast dosage and agent: None. COMPARISON: CT head November 18, 2022. FINDINGS: BRAIN PARENCHYMA: No intra- or extra-axial hemorrhage. No intracranial mass or mass effect. Garcia/white matter differentiation is maintained and there is no blurring of the basal ganglia. There is no hyperdense vessel. Small, old lacunar infarct right caudate nucleus and right external capsule, versus chronic small vessel ischemic changes, unchanged Posterior fossa structures are unremarkable. CSF SPACES: Appropriate for age. No hydrocephalus. Basal cisterns are patent. CALVARIUM, SKULL BASE, PARANASAL SINUSES AND MASTOID AIR CELLS: Intact calvarium and skull base. No fracture or osseous lesion. Paranasal sinuses are clear. Mastoid air cells and middle ears are clear. ORBITS: Both globes, extraocular muscles, optic nerves and retrobulbar fat appear unremarkable. ASPECTS Score for Acute Strokes: 10 CT/Brain/Head without Contrast IMPRESSION: No acute intracranial pathology. Remote lacunar infarcts right caudate and internal capsule versus chronic small vessel ischemic changes. Electronically Signed: Madhu Trent DO at 21:03 EDT ,
--- NOTE | 2022-11-29 20:04 | EKG12_ITS ---
Test Reason : CP Blood Pressure : / mmHG Vent. Rate : 074 BPM Atrial Rate : 074 BPM P-R Int : 176 ms QRS Dur : 096 ms QT Int : 420 ms P-R-T Axes : 049 014 048 degrees QTc Int : 466 ms Normal sinus rhythm Septal infarct , age undetermined Abnormal ECG Confirmed by NALLELY TERAN, PAULINO ([id number]), technical writer and editor DONAL ROCK ([id number]) on 12/01/2022 9:56:53 AM Referred By: Confirmed By:PAULINO BROWNING MD
[2022-11-29] MEDS: 0.9% Normal Saline 1,000 ML 1000 ML IV (20:11)
[2022-11-29 20:13] LABS: Absolute Lymphocyte Count 2.05 X10^3/uL (0.83-4.51); Absolute Neutrophil Count 4.1 X10^3/uL (2.0-7.7); Basophil# 0.05 X10^3/uL; Basophil% 0.7 % (0-1); Eosinophil# 0.22 X10^3/uL; Eosinophils% 3.1 % (0-5); Hematocrit 39.3 % (40-54); Hemoglobin 13.6 g/dL (13.0-16.5); Lymphocyte # 2.05 X10^3/ul (0.83-4.51); Lymphocyte % 28.7 % (19-41); Mean Corp Hgb Conc 34.6 g/dL (32-36); Mean Corpuscular Hgb 29.6 pg (27.0-32.0); Mean Corpuscular Volume 85.4 fL (80-94); Mean Platelet Vol. 12.4 fl (6.2-12.0); Monocyte# 0.71 X10^3/uL; Monocyte% 9.9 % (0-10); NRBC Flagged by Analyzer 0 % (0-5); Neutrophil # 4.09 X10^3/uL (2.7-7.7); Neutrophil % 57.3 % (47-70); Platelet Count 255 K/mm3 (150-450); RBC Distribution Width CV 12.7 % (11.6-14.6); RBC Distribution Width SD 39.1 fl (35.1-43.9); White Blood Count 7.1 K/mm3 (4.4-11.0)
--- NOTE | 2022-11-29 20:25 | RAD_ITS ---
STUDY: X-RAY CHEST REASON FOR EXAM: Male, 67 years old. Seizure TECHNIQUE: AP portable COMPARISON: November 18, 2022 FINDINGS: The lungs are clear and expanded. There is no demonstrated pleural abnormality. Normal size heart. Normal mediastinum and verenice. Normal visualized pulmonary arteries. Mildly calcified aortic arch and descending thoracic aorta. Normal visualized thoracic spine. Normal visualized ribs, clavicles, and shoulders. There is no demonstrated abnormality of the visualized soft tissue structures of the upper abdomen. RAD/Chest 1 View (Portable) IMPRESSION: No acute cardiopulmonary pathology. Electronically Signed: Dickson Salinas MD at 21:07 EDT ,
[2022-11-29 20:27] LABS: Anion Gap 6 (5-15); BUN 19 mg/dL (7-18); BUN/Creat Ratio 17.1 RATIO (10-20); Calcium,Total 8.8 mg/dL (8.5-10.1); Chloride 105 mmol/L (98-107); Creatinine, Serum 1.11 mg/dL (0.70-1.30); EST Glomerular Filtration Rate 70 mL/min (>60); Est Glom Filt Rate - Afr Amer 85 mL/min (>60); Estimated Creatinine Clearance 66.22 ml/min; Glucose 91 mg/dL (74-106); Potassium 3.9 mmol/L (3.5-5.1); Sodium Level 137 mmol/L (136-145)
--- NOTE | 2022-11-29 21:58 | EDS_ITS ---
HPI History of Present Illness Chief Complaint: General Illness Informant: patient Onset/Context/Timing Onset: Today Context: Sudden Onset Timing: Lasts (Approximately 5 minutes) Quality: Shaking Location: Generalized Worsened by: Nothing Relieved by: Nothing Narrative Narrative: Patient presents with a shaking episode that began tonight. Patient states she was shaking all over but is still awake and alert during the entire episode. Patient states it lasted approximately 5 minutes. Patient states nothing makes it better nothing makes it worse. 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 Patient denies any recent fevers or chills. Patient admits to some mild rhinorrhea. Patient denies any chest pain or shortness of breath. [facility] Medical History (Updated 11/29/22 @ 22:[address] Sergio Quintana, ) Cognitive impairment Depression Diabetes DKA, type 1 Hypertension Irregular heart beat Kidney disease Orthostatic hypotension Seizures Stroke/cerebrovascular accident Uncontrolled type 1 diabetes mellitus Home Medications blood-glucose sensor (Dexcom G6 Sensor device) #9 ea 09/08/22 [Rx Last Taken Unknown] blood-glucose transmitter (Dexcom G6 Transmitter device) #1 ea 09/08/22 [Rx Last Taken Unknown] escitalopram oxalate 10 mg tablet 10 mg PO DAILY depression 09/08/22 [History Last Taken Unknown] tamsulosin 0.4 mg capsule 0.4 mg PO DAILY prostate 09/08/22 [History Last Taken Unknown] aspirin 81 mg tablet 81 mg PO DAILY 09/10/22 [History Last Taken Unknown] insulin lispro 100 unit/mL subcutaneous pen (Humalog KwikPen (U-100) Insulin) subcut 09/10/22 [History Last Taken Unknown] insulin glargine 100 unit/mL (3 mL) subcutaneous pen (Lantus Solostar U-100 Insulin) 20 unit (0.2 mL) subcut QHS #15 mL 09/11/22 [Rx Last Taken Unknown] metoprolol succinate 100 mg tablet,extended release 24 hr 50 mg PO DAILY 09/28/22 [History Last Taken Unknown] clonidine HCl 0.1 mg tablet 0.1 mg PO BID #60 tabs 11/18/22 [Rx Last Taken Unknown] clonidine HCl 0.1 mg tablet 0.1 mg PO BID #60 tabs 11/18/22 [Rx Last Taken Unknown] Allergy/AdvReac Type Severity Reaction Status Date / Time No Known Allergies Allergy Verified 11/29/22 19:50 Family History Other CVA (cerebral vascular accident) Colon cancer Diabetes Hypertension Surgical History (Updated 11/29/22 @ 22:[address] Sergio Quintana DO) History of carpal tunnel surgery Hx of elbow surgery Hx of shoulder surgery Hx of vasectomy S/P trigger finger release Social History household members: family Smoking Status: Former smoker alcohol intake: former substance use type: does not use ROS ROS ED Constitutional Constitutional ED: Denies chills or fever(s) Eyes Eyes: Denies blurry vision or change in vision ENT ENT ED: Reports rhinorrhea; Denies sore throat Cardiovascular Cardiovascular: Denies chest pain or palpitations Respiratory/Chest Respiratory/Chest: Denies cough or dyspnea Gastrointestinal Gastrointestinal: Denies nausea or vomiting Genitourinary Genitourinary ED: Denies dysuria or hematuria Musculoskeletal Musculoskeletal: Denies back pain or neck pain Integumentary Denies abscess or rash Neurologic Neurologic: Denies headache(s) or weakness Allergic/Immunologic Allergic/Immunologic ED: Denies mouth swelling or urticaria EXAM Physical Exam Const Vital Signs: 11/29/22 19:47 11/29/22 19:50 Temperature 98.1 F Temperature Source Oral Pulse Rate 84 Respiratory Rate 16 Respiratory Effort Normal Non-Labored Respiratory Pattern Normal Blood Pressure 163/85 H Blood Pressure Mean 111 Pulse Ox 99 Oxygen Delivery Method Room Air Positive well nourished and well developed General Appearance ED: well developed HEENT Reports moist mucous membranes Neck supple and no JVD Resp normal respiratory effort and clear to auscultation bilaterally Cardio regular rate, regular rhythm and no murmurs GI normal to inspection, nondistended, normoactive bowel sounds and non-tender Palpation: soft Extremity normal to inspection General Extremety ED: Negative for edema or tenderness General Extremity: Negative for edema Neuro oriented x3, CN's II-XII intact bilaterally and no sensory deficits noted Sensorium / Orientation: alert Motor Exam: strength 5/5 throughout Psych mental status grossly normal Skin no rashes or lesions noted MDM MDM MDM Narrative Medical decision making narrative: Differential diagnosis includes seizure, electrolyte abnormality, hypoglycemia, hyperglycemia, and intracranial abnormality. CT scan of the brain will be obtained to assess for intracranial bleeding and mass. CBC will be obtained to assess for leukocytosis and anemia. Basic metabolic profile will be obtained to assess for electrolyte abnormality and blood glucose. Chest x-ray will be obtained to assess for pneumonia. EKG will be obtained to assess for cardiac dysrhythmia and cardiac ischemia. Lab Data Attestation: I reviewed the patient's lab results. Lab results narrative: CBC was reviewed and was within normal limits. Basic metabolic profile was reviewed and was within normal limits. Labs: Laboratory Results - last 24 hr 11/29/22 11/29/22 19:55 19:55 WBC 7.1 RBC 4.60 Hgb 13.6 Hct 39.3 L MCV 85.4 MCH 29.6 MCHC 34.6 RDW Std Deviation 39.1 RDW Coeff of Tyrese 12.7 Plt Count 255 MPV 12.4 H Immature Gran % (Auto) 0.300 Neut % (Auto) 57.3 Lymph % (Auto) 28.7 [place] % (Auto) 9.9 Eos % (Auto) 3.1 Baso % (Auto) 0.7 Absolute Neuts (auto) 4.1 Absolute Lymphs (auto) 2.05 Nucleated RBC % 0 Sodium 137 Potassium 3.9 Chloride 105 Carbon Dioxide 26.0 Anion Gap 6 BUN 19 H Creatinine 1.11 Estim Creat Clear Calc 66.22 Est GFR (MDRD) Af Amer 85 Est GFR (MDRD) Non-Af 70 BUN/Creatinine Ratio 17.1 Glucose 91 Calcium 8.8 Radiography Diagnostic Testing: Clinical Impression(s) from Imaging Studies Brain CT 11/29/22 20:03 IMPRESSION: No acute intracranial pathology. Remote lacunar infarcts right caudate and internal capsule versus chronic small vessel ischemic changes. Electronically Signed: Madhu Trent DO at 21:03 EDT , Chest X-Ray 11/29/22 20:25 IMPRESSION: No acute cardiopulmonary pathology. Electronically Signed: Dickson Salinas MD at 21:07 EDT , CT scan of the brain was obtained. There is no acute intracranial abnormality. This was interpreted by the radiologist and was also independently reviewed by myself. Portable 1 view chest x-ray was obtained. On my independent interpretation, lung jesus are clear. There is normal cardiac silhouette. Bony thorax is normal. There is no acute process noted. Radiologist also interpreted the x- ray and agrees. EKG Initial EKG: Attestation: I personally reviewed and interpreted this EKG as follows: Interpretation: Sinus Rhythm (74) and No Acute Injury Pattern Comments: EKG was obtained. On my independent interpretation, it showed a normal sinus rhythm with a rate of 74. HI interval, QRS interval, and QTc intervals were all normal. [place] was normal. There are no acute ST or T wave changes. Prior EKG tracings: available for review Prior: Unchanged (11/18/2022) Treatment and Re-Evaluation :: Patient was given IV fluids. Patient is feeling better on reevaluation. Patient wants to go home. Patient was instructed to drink plenty of fluids. Patient was instructed to follow-up with his primary care physician in 5 to 7 days. Patient understands and is agreeable with the plan. All questions were answered. Discharge Plan Triage Chief Complaint: General Illness ED Provider: Sergio Quintana Dx/Rx/DC Orders Clinical Impression: Episode of shaking Instructions: ED Seizure, Recurrent (Adult) Prescriptions: No Action tamsulosin 0.4 mg capsule 0.4 mg PO DAILY escitalopram oxalate 10 mg tablet 10 mg PO DAILY (DME) Dexcom G6 Sensor Device See Rx Instructions .Route Qty: 9 1RF Rx Instructions: 1 sensor q 10 days (DME) Dexcom G6 Transmitter Device See Rx Instructions .Route Qty: 1 1RF Rx Instructions: 1 transmitter q 90 days metoprolol succinate 100 mg tablet extended release 24 hr 50 mg PO DAILY aspirin 81 mg Tablet 81 mg PO DAILY insulin lispro [Humalog KwikPen Insulin] 100 unit/mL Insulin Pen SUBCUT Rx Instructions: Patient states does Carbo counting to determine how much to take insulin glargine [Lantus Solostar U-100 Insulin] 100 unit/mL (3 mL) insulin pen 20 unit subcut QHS Qty: 15 0RF clonidine HCl 0.1 mg tablet 0.1 mg PO BID Qty: 60 0RF clonidine HCl 0.1 mg tablet 0.1 mg PO BID Qty: 60 0RF [facility] - 3-5 Days Disposition Disposition: Home, Self Care
[2022-11-29 22:33] VITALS: BP 158/88; PULSE 78; RESP 17; O2SAT 99
== END 2022-11-29 22:34 | disposition home or self-care (01) ==
PROVIDERS: Emergency Provider Emergency Medicine; Visit Provider Emergency Medicine
DX: R56.9 Unspecified convulsions (principal); E10.9 Type 1 diabetes mellitus without complications; Z79.4 Long term (current) use of insulin; R07.9 Chest pain, unspecified; Z87.891 Personal history of nicotine dependence; I10 Essential (primary) hypertension; Z86.73 Personal history of transient ischemic attack (TIA), and cerebral infarction without residual deficits; J34.89 Other specified disorders of nose and nasal sinuses; Z79.82 Long term (current) use of aspirin; R94.31 Abnormal electrocardiogram [ECG] [EKG]
CPT/HCPCS: 70450; 71045; 80048; 85025; 93005; 99285; J7030; A4216

== ENCOUNTER 2023-02-22 12:15 | Emergency (ER) | payer OTHER, SELFPAY ==
[2023-02-22 12:16] VITALS: BP 115/80; PULSE 80; RESP 16; TEMP 36.3; O2SAT 98; BMI 22.1
--- NOTE | 2023-02-22 12:29 | EX.ED.DYSGE1 ---
HPI History of Present Illness Chief Complaint: Hyperglycemia Detail of Chief Complaint: Hyperglycemia Informant: patient and family Narrative Narrative: Patient presents to the emergency department with his son with concern for elevated blood sugars. Patient is a type I diabetic and has an insulin pump. Patient states since yesterday's blood sugars have been reading high over 600. They have changed the cartridges and the pump in the tubing and continues to read high. Patient states he is getting a read ask on his pump that he has not seen before and is not sure what it means. Patient otherwise does not feel ill. He denies vomiting. He denies abdominal pain. He said no recent illness. [facility] Medical History (Updated 02/22/23 @ 14:[address] Adalberto Enrique, ) Cognitive impairment Depression Diabetes DKA, type 1 Hypertension Irregular heart beat Kidney disease Orthostatic hypotension Seizures Stroke/cerebrovascular accident Uncontrolled type 1 diabetes mellitus Home Medications blood-glucose sensor (Dexcom G6 Sensor device) #9 ea 09/08/22 [Rx Last Taken Unknown] blood-glucose transmitter (Dexcom G6 Transmitter device) #1 ea 09/08/22 [Rx Last Taken Unknown] escitalopram oxalate 10 mg tablet 10 mg PO DAILY depression 09/08/22 [History Last Taken Unknown] tamsulosin 0.4 mg capsule 0.4 mg PO DAILY prostate 09/08/22 [History Last Taken Unknown] aspirin 81 mg tablet 81 mg PO DAILY 09/10/22 [History Last Taken Unknown] metoprolol succinate 100 mg tablet,extended release 24 hr 50 mg PO DAILY 09/28/22 [History Last Taken Unknown] clonidine HCl 0.1 mg tablet 0.1 mg PO BID #60 tabs 11/18/22 [Rx Last Taken Unknown] clonidine HCl 0.1 mg tablet 0.1 mg PO BID #60 tabs 11/18/22 [Rx Last Taken Unknown] insulin glargine 100 unit/mL (3 mL) subcutaneous pen (Lantus Solostar U-100 Insulin) 20 unit (0.2 mL) subcut QHS #15 mL 02/22/23 [Rx Last Taken Unknown] insulin lispro 100 unit/mL subcutaneous pen (Humalog KwikPen (U-100) Insulin) 8 unit (0.08 mL) subcut TID #15 mL 02/22/23 [Rx Last Taken Unknown] Allergy/AdvReac Type Severity Reaction Status Date / Time No Known Allergies Allergy Verified 02/22/23 12:16 Family History Other CVA (cerebral vascular accident) Colon cancer Diabetes Hypertension Surgical History History of carpal tunnel surgery Hx of elbow surgery Hx of shoulder surgery Hx of vasectomy S/P trigger finger release Social History household members: family Smoking Status: Former smoker alcohol intake: former substance use type: does not use ROS ROS ED ROS Narrative Elevated blood sugars Review of Systems ROS Unobtainable: other Constitutional Constitutional ED: Reports lethargy; Denies chills, fever(s), sweats or weight loss Eyes Eyes: Denies blurry vision, change in vision or diplopia ENT ENT ED: Denies rhinorrhea or sore throat Cardiovascular Cardiovascular: Denies chest pain, orthopnea or racing heartbeat Respiratory/Chest Respiratory/Chest: Denies cough, dyspnea, dyspnea on exertion, orthopnea or sputum Gastrointestinal Gastrointestinal: Denies abdominal pain, diarrhea, nausea or vomiting Genitourinary Genitourinary ED: Denies dysuria, hematuria or urinary frequency Musculoskeletal Musculoskeletal: Denies arthralgias, back pain, myalgias or neck pain Integumentary Denies abscess, Abrasions or rash Neurologic Neurologic: Denies headache(s) or weakness Psychiatric Psychiatric: Denies anxiety, depression or suicidal thoughts Endocrine Endocrinology: Denies polydipsia, polyphagia or polyuria Hematologic/Lymphatic Hematologic/Lymphatic: Denies easy bleeding, easy bruising or lymphadenopathy Allergic/Immunologic Allergic/Immunologic ED: Denies mouth swelling, tongue swelling or urticaria EXAM Physical Exam Const Vital Signs: 02/22/23 12:16 Temperature 97.3 F L Temperature Source Temporal Pulse Rate 80 Respiratory Rate 16 Blood Pressure 115/80 Blood Pressure Mean 91 Pulse Ox 98 Oxygen Delivery Method Room Air Positive well nourished and well developed General Appearance ED: well developed and NAD HEENT Reports TM's clear and moist mucous membranes normocephalic and atraumatic; Negative for trauma or tenderness Tympanic Membrane ED: Yes TM's clear Eyes PERRL and EOMs intact bilaterally General Eye ED: Negative for pale conjunctiva or scleral icterus Neck no lymphadenopathy, supple and no JVD General: Negative for tenderness Chest Wall inspection of chest normal and palpation of chest normal Chest: Negative for tenderness Resp normal respiratory effort and clear to auscultation bilaterally Effort and Inspection: Negative for respiratory distress or pain with movement Auscultation: Negative for rhonchi, wheezes or diminished lung sounds Cardio regular rate, regular rhythm, S1 normal heart sound, S2 normal heart sound and no murmurs Peripheral Pulses: pulses 2+ throughout GI normal to inspection, nondistended, normoactive bowel sounds, soft to palpation, non-tender, non-distended and no masses Back/Spine no CVA tenderness and no thoracic nor lumbar tenderness Extremity normal to inspection General Extremety ED: Negative for edema General Extremity: Negative for edema Neuro oriented x3, CN's II-XII intact bilaterally, no sensory deficits noted and gait normal Sensorium / Orientation: awake, alert, oriented to person, oriented to place and oriented to time Motor Exam: strength 5/5 throughout and strength abnormal Psych mental status grossly normal Skin no rashes or lesions noted and no wounds MDM MDM MDM Narrative Medical decision making narrative: Patient presents with hyperglycemia with concern for pump not working properly. Patient had an IV line established. CBC with differential obtained was unremarkable. Chemistries showed a BUN of 31 and creatinine 1.61. His blood sugar was 472. Anion gap was normal at 10. CO2 was normal at 21. Patient was given 10 units of regular insulin subcu. I discussed case with Dr. Najera who recommended discontinuing the pump and having patient follow-up with her office. She will call in Humalog and Lantus insulin the patient can use subcu. Patient otherwise looks well I do not think he is in DKA. I think he can be discharged home safely. Lab Data Labs: Laboratory Results - last 24 hr 02/22/23 02/22/23 02/22/23 12:32 12:45 12:45 WBC 7.2 RBC 4.55 L Hgb 12.9 L Hct 38.9 L MCV 85.5 MCH 28.4 MCHC 33.2 RDW Std Deviation 40.9 RDW Coeff of Tyrese 13.2 Plt Count 207 MPV 12.6 H Immature Gran % (Auto) 0.600 Neut % (Auto) 80.9 H Lymph % (Auto) 11.0 L Harmon % (Auto) 5.9 Eos % (Auto) 1.0 Baso % (Auto) 0.6 Absolute Neuts (auto) 5.8 Absolute Lymphs (auto) 0.79 L Nucleated RBC % 0 Sodium 129 L Potassium 4.1 Chloride 98 Carbon Dioxide 21.0 Anion Gap 10 BUN 31 H Creatinine 1.61 H Estim Creat Clear Calc 44.19 Est GFR (MDRD) Af Amer 55 L Est GFR (MDRD) Non-Af 46 L BUN/Creatinine Ratio 19.3 Glucose 472 H* Calcium 9.1 Urine Color Urine Clarity Urine pH Ur Specific [place] Urine Protein Urine Glucose (UA) Urine Ketones Urine Occult Blood Urine Nitrite Urine Bilirubin Urine Urobilinogen Ur Leukocyte Esterase Urine RBC Urine WBC Ur Squamous Epith Cells Urine Bacteria Urine Mucus Acetone Level POC Glucose 460 H* 02/22/23 02/22/23 12:45 12:45 WBC RBC Hgb Hct MCV MCH MCHC RDW Std Deviation RDW Coeff of Tyrese Plt Count MPV Immature Gran % (Auto) Neut % (Auto) Lymph % (Auto) Harmon % (Auto) Eos % (Auto) Baso % (Auto) Absolute Neuts (auto) Absolute Lymphs (auto) Nucleated RBC % Sodium Potassium Chloride Carbon Dioxide Anion Gap BUN Creatinine Estim Creat Clear Calc Est GFR (MDRD) Af Amer Est GFR (MDRD) Non-Af BUN/Creatinine Ratio Glucose Calcium Urine Color Yellow Urine Clarity Clear Urine pH 6.0 Ur Specific [place] 1.015 Urine Protein 15 H Urine Glucose (UA) 1000 H Urine Ketones 150 A* Urine Occult Blood Negative Urine Nitrite Negative Urine Bilirubin Negative Urine Urobilinogen Normal Ur Leukocyte Esterase Negative Urine RBC 0 SEEN Urine WBC 0 SEEN Ur Squamous Epith Cells 0 SEEN Urine Bacteria 0 SEEN Urine Mucus 0 SEEN Acetone Level SMALL H POC Glucose Discharge Plan Triage Chief Complaint: Hyperglycemia ED Provider: Adalberto Enrique Dx/Rx/DC Orders Clinical Impression: Hyperglycemia Instructions: ED Diabetic Hyperglycemia Prescriptions: No Action tamsulosin 0.4 mg capsule 0.4 mg PO DAILY escitalopram oxalate 10 mg tablet 10 mg PO DAILY (DME) Dexcom G6 Sensor Device See Rx Instructions .Route Qty: 9 1RF Rx Instructions: 1 sensor q 10 days (DME) Dexcom G6 Transmitter Device See Rx Instructions .Route Qty: 1 1RF Rx Instructions: 1 transmitter q 90 days metoprolol succinate 100 mg tablet extended release 24 hr 50 mg PO DAILY aspirin 81 mg Tablet 81 mg PO DAILY clonidine HCl 0.1 mg tablet 0.1 mg PO BID Qty: 60 0RF clonidine HCl 0.1 mg tablet 0.1 mg PO BID Qty: 60 0RF insulin glargine [Lantus Solostar U-100 Insulin] 100 unit/mL (3 mL) insulin pen 20 unit subcut QHS Qty: 15 3RF insulin lispro [Humalog KwikPen Insulin] 100 unit/mL insulin pen 8 unit SUBCUT TID Qty: 15 0RF Primary Care Provider: [facility] Referrals: Lamine Najera MD [Med Staff - Courtesy Staff] - 3-5 Days [facility] [Primary Care Provider] - Activity Restrictions/Additional Instructions: Take 20 units of Lantus daily. With meals you are to take 6 to 10 units of regular short acting insulin. Follow-up with your fiscal agent within the next 3 to 5 days. Disposition Disposition: Home, Self Care
[2023-02-22] MEDS: 0.9% Normal Saline 1,000 ML 150 ML IV (12:49)
[2023-02-22 12:55] LABS: Bedside Glucose 460 mg/dL (74-106)
[2023-02-22 13:00] LABS: Bacteria 0 SEEN /hpf (None Seen); Mucous, Urine 0 SEEN /hpf (<or=2+); Red Blood Cells-Urine 0 SEEN /hpf (0-5); Squamous Epithelial Cells - UA 0 SEEN /hpf (0-5); White Blood Cells 0 SEEN /hpf (0-5)
[2023-02-22 13:06] LABS: Absolute Lymphocyte Count 0.79 X10^3/uL (0.83-4.51); Absolute Neutrophil Count 5.8 X10^3/uL (2.0-7.7); Basophil# 0.04 X10^3/uL; Basophil% 0.6 % (0-1); Eosinophil# 0.07 X10^3/uL; Hematocrit 38.9 % (40-54); Hemoglobin 12.9 g/dL (13.0-16.5); Lymphocyte # 0.79 X10^3/ul (0.83-4.51); Mean Corp Hgb Conc 33.2 g/dL (32-36); Mean Corpuscular Hgb 28.4 pg (27.0-32.0); Mean Corpuscular Volume 85.5 fL (80-94); Mean Platelet Vol. 12.6 fl (6.2-12.0); Monocyte# 0.42 X10^3/uL; Monocyte% 5.9 % (0-10); NRBC Flagged by Analyzer 0 % (0-5); Neutrophil % 80.9 % (47-70); Platelet Count 207 K/mm3 (150-450); RBC Distribution Width CV 13.2 % (11.6-14.6); RBC Distribution Width SD 40.9 fl (35.1-43.9); Red Blood Count 4.55 M/mm3 (4.6-6.2); White Blood Count 7.2 K/mm3 (4.4-11.0)
[2023-02-22 13:19] LABS: Color, Urine Yellow (Yellow); Glucose, Dipstick 1000 mg/dl (Normal); Leukocyte Esterase-Dipstick Negative /ul (Negative); Nitrite-Dipstick Negative (Negative); Occult Blood-Urine Negative /ul (Negative); Protein-Dipstick 15 mg/dl (Negative); Specific Gravity, Urine 1.015 (1.002-1.030); Urine Bilirubin Dipstick Negative (Negative); Urine Clarity Clear (Clear); Urine Urobilinogen Normal (Normal)
[2023-02-22 13:22] LABS: Ketone-Dipstick 150 mg/dl (Negative)
[2023-02-22 13:36] LABS: Anion Gap 10 (5-15); BUN 31 mg/dL (7-18); BUN/Creat Ratio 19.3 RATIO (10-20); Calcium,Total 9.1 mg/dL (8.5-10.1); Chloride 98 mmol/L (98-107); Creatinine, Serum 1.61 mg/dL (0.70-1.30); EST Glomerular Filtration Rate 46 mL/min (>60); Est Glom Filt Rate - Afr Amer 55 mL/min (>60); Estimated Creatinine Clearance 44.19 ml/min; Glucose 472 mg/dL (74-106); Potassium 4.1 mmol/L (3.5-5.1); Sodium Level 129 mmol/L (136-145)
[2023-02-22] MEDS: Insulin Lispro 100 UNIT/ML INSULN.PEN 10 UNIT SC (13:59)
--- NOTE | 2023-02-22 14:23 | CM.ED ---
Social Work SW introduced self and role to pt. SW discussed advance directives with pt and son. Pt's son reports he is HCPOA and [facility]. Son reports he can bring in a copy when able. Izabela Castillo CURING OVEN TENDER, MEDIA MONITOR
[2023-02-22 14:34] VITALS: BP 124/77; PULSE 71; RESP 16; O2SAT 100
== END 2023-02-22 14:44 | disposition home or self-care (01) ==
PROVIDERS: Emergency Provider Emergency Medicine; Referring Provider Emergency Medicine; Visit Provider Emergency Medicine
DX: E10.65 Type 1 diabetes mellitus with hyperglycemia (principal); Z79.4 Long term (current) use of insulin; Z96.41 Presence of insulin pump (external) (internal); Z87.891 Personal history of nicotine dependence; I10 Essential (primary) hypertension; F32.A Depression, unspecified; Z79.899 Other long term (current) drug therapy; Z98.52 Vasectomy status
CPT/HCPCS: 80048; 81001; 82009; 82962; 85025; 96360; 96361; 99282; J7030; A4216

== ENCOUNTER 2023-03-10 14:17 | Emergency (ER) | payer OTHER, SELFPAY ==
[2023-03-10] VITALS (10 sets, daily range): BP systolic 126–161; BP diastolic 68–86; PULSE 88–109; RESP 12–22; TEMP 36.1; O2SAT 97–99; BMI 22.8
--- NOTE | 2023-03-10 14:34 | CT_ITS ---
STUDY: CT BRAIN WITHOUT CONTRAST REASON FOR EXAM: Male, 67 years old. Altered MS, poss seizure RADIATION DOSAGE (If Supplied By Facility): CTDIvol = ( 44.99 ) mGy, DLP = ( 812.98 ) mGycm TECHNIQUE: Transaxial CT imaging of the brain was performed without administration of intravenous contrast material. Individualized dose optimization techniques were used for this CT. COMPARISON: Comparison is made with prior study dated November 29, 2022. FINDINGS: Normal soft tissue structures. Normal calvarium. There is mild cerebral atrophy with widening of the extra-axial spaces and ventricular dilatation. There are areas of decreased attenuation within the white matter tracts of the supratentorial brain, consistent with microvascular disease changes. Stable old lacunar infarct in the right caudate nucleus. Normal brainstem. Normal cerebellum. There is no intracranial hemorrhage. There are no findings of an acute ischemic infarction. Normal visualized paranasal sinuses. CT/Brain/Head without Contrast IMPRESSION: Chronic involutional changes of the brain. Electronically Signed: Gopal Lassiter MD at 15:34 EDT ,
--- NOTE | 2023-03-10 14:35 | EKG12_ITS ---
Test Reason : REPEAT Blood Pressure : / mmHG Vent. Rate : 091 BPM Atrial Rate : 091 BPM P-R Int : 196 ms QRS Dur : 086 ms QT Int : 390 ms P-R-T Axes : 073 018 052 degrees QTc Int : 479 ms Normal sinus rhythm Normal ECG Confirmed by DIANE TERAN, MANISH ([id number]), editorial assistant DONAL ROCK ([id number]) on 03/14/2023 1:04:32 PM Referred By: NIRMAL Confirmed By:KEELY CONTRERAS MD
--- NOTE | 2023-03-10 14:38 | EDS_ITS ---
HPI History of Present Illness Chief Complaint: Unresponsive Informant: patient Narrative Narrative: History mostly given by ED nurse who received history from EMS. Patient apparently had a seizure earlier today. Then family saw him have another 1, but then he was unresponsive and they thought he had a cardiac arrest and called 911 and started CPR. EMS states they doubt the patient lost his pulse and think he has been postictal throughout their evaluation. Apparently the patient has a history of seizing. He is able to be awakened easily right now, he denies drinking any alcohol or taking any drugs, he denies taking any medications for seizures. He cannot provide any other history as he is a little disoriented and lethargic, but answers no to most review of systems except for feeling tired. [facility] Medical History Cognitive impairment Depression Diabetes DKA, type 1 Hypertension Irregular heart beat Kidney disease Orthostatic hypotension Seizures Stroke/cerebrovascular accident Uncontrolled type 1 diabetes mellitus Home Medications blood-glucose sensor (Dexcom G6 Sensor device) #9 ea 09/08/22 [Rx Last Taken Unknown] blood-glucose transmitter (Dexcom G6 Transmitter device) #1 ea 09/08/22 [Rx Last Taken Unknown] escitalopram oxalate 10 mg tablet 10 mg PO DAILY depression 09/08/22 [History Last Taken Unknown] tamsulosin 0.4 mg capsule 0.4 mg PO DAILY prostate 09/08/22 [History Last Taken Unknown] aspirin 81 mg tablet 81 mg PO DAILY 09/10/22 [History Last Taken Unknown] metoprolol succinate 100 mg tablet,extended release 24 hr 50 mg PO DAILY 09/28/22 [History Last Taken Unknown] clonidine HCl 0.1 mg tablet 0.1 mg PO BID #60 tabs 11/18/22 [Rx Last Taken Unknown] clonidine HCl 0.1 mg tablet 0.1 mg PO BID #60 tabs 11/18/22 [Rx Last Taken Unknown] insulin glargine 100 unit/mL (3 mL) subcutaneous pen (Lantus Solostar U-100 Insulin) 20 unit (0.2 mL) subcut QHS #15 mL 02/22/23 [Rx Last Taken Unknown] insulin lispro 100 unit/mL subcutaneous pen (Humalog KwikPen (U-100) Insulin) 8 unit (0.08 mL) subcut TID #15 mL 02/22/23 [Rx Last Taken Unknown] Allergy/AdvReac Type Severity Reaction Status Date / Time No Known Allergies Allergy Verified 03/10/23 14:19 Family History Other CVA (cerebral vascular accident) Colon cancer Diabetes Hypertension Surgical History History of carpal tunnel surgery Hx of elbow surgery Hx of shoulder surgery Hx of vasectomy S/P trigger finger release Social History household members: family Smoking Status: Former smoker alcohol intake: former substance use type: does not use ROS ROS ED Review of Systems ROS Unobtainable: due to mental status Constitutional Constitutional ED: Denies fever(s) Eyes Eyes: Denies change in vision or diplopia ENT ENT ED: Denies sore throat Cardiovascular Cardiovascular: Denies chest pain Respiratory/Chest Respiratory/Chest: Denies dyspnea Gastrointestinal Gastrointestinal: Denies abdominal pain, nausea or vomiting Musculoskeletal Musculoskeletal: Denies back pain or neck pain Integumentary Denies abscess or rash Neurologic Neurologic: Denies headache(s) or paresthesias EXAM Physical Exam Const Vital Signs: 03/10/23 14:19 03/10/23 14:24 03/10/23 14:58 Temperature 97 F L Temperature Source Temporal Pulse Rate 109 H Respiratory Rate 16 Blood Pressure 136/86 H 126/68 H Blood Pressure Mean 102 87 Pulse Ox 97 Oxygen Delivery Method Room Air 03/10/23 16:26 Temperature Temperature Source Pulse Rate 96 Respiratory Rate Blood Pressure 145/71 H Blood Pressure Mean 95 Pulse Ox Oxygen Delivery Method Positive well nourished and well developed General Appearance ED: well developed and NAD HEENT Reports moist mucous membranes normocephalic and atraumatic Eyes PERRL and EOMs intact bilaterally Neck full ROM and supple Chest Wall inspection of chest normal Resp normal respiratory effort and clear to auscultation bilaterally Cardio regular rate, regular rhythm and no murmurs Rate: tachycardic GI non-tender and non-distended Auscultation: normoactive bowel sounds Palpation: soft Back/Spine no CVA tenderness Extremity normal to inspection General Extremety ED: Negative for edema, pulses abnormal or tenderness General Extremity: Negative for edema or pulses abnormal Neuro CN's II-XII intact bilaterally and no sensory deficits noted Neuro Narrative: Lethargic, easily alerts to voice but has trouble maintaining alertness. Seems a little disoriented, GCS 13. Speech is normal when he does it. Nonlateralizing peripheral neurologic exam. Sensorium / Orientation: orientation impaired Motor Exam: strength 5/5 throughout and general weakness Skin no rashes or lesions noted and no wounds MDM MDM MDM Narrative Medical decision making narrative: Patient was lethargic. This did improve, and then he started having significant discomfort in his chest. We already done EKG looks unremarkable, I repeated this when he was complaining of chest discomfort and holding onto his chest like it hurt, repeated EKG and it is normal. 2 troponins both unremarkable single digits. On reexamination of his chest it is not particularly tender, we gave him some Zofran and some Ativan because he was really anxious about this followed by GI cocktail which did really help his discomfort although was not 100% resolved. The son arrived, he said that he seemed to potentially have a seizure earlier because he was altered, looking around, reaching for things that were not there, does not sound like he had tonic-clonic activity that he witnes sed, but he had a couple episodes of this today, followed by a lapse in consciousness where he looked to stop his breathing according to the son so he started performing CPR on him. He did not check for a pulse, he does not have medical training. Given the patient's chest discomfort, we thought it was possible that he was having musculoskeletal and/or esophageal pain because of the CPR and he vomited somewhat afterwards. Chest x-ray 1 view of my interpretation is normal, I do not see pneumothorax, and obvious radiographically visible fracture, hemothorax, or pneumomediastinum. CT of the head is unremarkable, I reviewed the images and report and I agree with it. His lactate was high which would be consistent with a tonic-clonic seizure which he may or may not of had. He did not have any more episodes here. He felt much better on reevaluation. Son states he has had a thorough [facility] which is why he is not on any antiepileptics. Son is comfortable taking him home and comfortable allowing him, we will give him a liter of fluid here his vital signs are normal on reevaluation, we discussed reasons to return which he is always welcome to do, and they are all comfortable with that plan. Lab Data Attestation: I reviewed the patient's lab results. Labs: Laboratory Results - last 24 hr 03/10/23 03/10/23 03/10/23 14:39 16:00 16:52 WBC 12.8 H RBC 4.61 Hgb 13.4 Hct 39.6 L MCV 85.9 MCH 29.1 MCHC 33.8 RDW Std Deviation 41.1 RDW Coeff of Tyrese 13.2 Plt Count 262 MPV 12.9 H Immature Gran % (Auto) 1.500 H Neut % (Auto) 85.0 H Lymph % (Auto) 9.1 L [place] % (Auto) 3.5 Eos % (Auto) 0.5 Baso % (Auto) 0.4 Absolute Neuts (auto) 10.9 H Absolute Lymphs (auto) 1.16 Nucleated RBC % 0 Sodium 129 L Potassium 4.0 Chloride 96 L Carbon Dioxide 15.0 L Anion Gap 18 H BUN 14 Creatinine 1.57 H Estim Creat Clear Calc 46.76 Est GFR (MDRD) Af Amer 57 L Est GFR (MDRD) Non-Af 47 L BUN/Creatinine Ratio 8.9 L Glucose 324 H Lactic Acid 11.4 H* Calcium 9.0 Total Bilirubin 0.40 AST 58 H ALT 69 H Alkaline Phosphatase 107 Troponin I High Sens 3 7 Total Protein 7.9 Albumin 3.9 Globulin 4.0 Albumin/Globulin Ratio 1.0 Urine Color Yellow Urine Clarity Clear Urine pH 6.0 Ur Specific [place] 1.015 Urine Protein 30 H Urine Glucose (UA) 1000 H Urine Ketones 5 H Urine Occult Blood 10 H Urine Nitrite Negative Urine Bilirubin Negative Urine Urobilinogen Normal Ur Leukocyte Esterase Negative Urine RBC 0 SEEN Urine WBC 0 SEEN Ur Squamous Epith Cells 0 SEEN Urine Bacteria 0 SEEN Urine Mucus 0 SEEN Urine Opiates Screen NEGATIVE Urine Methadone Screen NEGATIVE Ur Barbiturates Screen NEGATIVE Ur Phencyclidine Scrn NEGATIVE Ur Amphetamines Screen NEGATIVE MDMA (Ecstasy) Screen NEGATIVE U Benzodiazepines Scrn NEGATIVE Urine Cocaine Screen NEGATIVE U Cannabinoids Screen POSITIVE H Ur Drug Screen Comment Ethyl Alcohol < 3.0 Radiography Diagnostic Testing: Clinical Impression(s) from Imaging Studies Brain CT 03/10/23 14:34 IMPRESSION: Chronic involutional changes of the brain. Electronically Signed: Gopal Lassiter MD at 15:34 EDT , Chest X-Ray 03/10/23 15:22 IMPRESSION: Normal x-ray examination of the chest. Electronically Signed: Gopal Lassiter MD at 15:36 EDT , Rhythm Strip Rhythm Strip: Sinus Rhythm Rate: 110 Ectopy: None EKG Initial EKG: Attestation: I personally reviewed and interpreted this EKG as follows: Interpretation: No Acute Injury Pattern and Sinus Tachycardia Follow-up EKG: Attestation: I personally reviewed and interpreted this EKG as follows: Interpretation: Sinus Rhythm and No Acute Injury Pattern Prior EKG tracings: available for review Prior: Unchanged Discharge Plan Triage Chief Complaint: Unresponsive ED Provider: Omar Garcia Dx/Rx/DC Orders Clinical Impression: Hyperglycemia due to diabetes mellitus, Transient alteration of awareness, Chest pain Instructions: ED Chest Pain, Noncardiac, ED Diabetic Hyperglycemia Prescriptions: Continued tamsulosin 0.4 mg capsule 0.4 mg PO DAILY escitalopram oxalate 10 mg tablet 10 mg PO DAILY (DME) Dexcom G6 Sensor Device See Rx Instructions .Route Qty: 9 1RF Rx Instructions: 1 sensor q 10 days (DME) Dexcom G6 Transmitter Device See Rx Instructions .Route Qty: 1 1RF Rx Instructions: 1 transmitter q 90 days metoprolol succinate 100 mg tablet extended release 24 hr 50 mg PO DAILY aspirin 81 mg Tablet 81 mg PO DAILY clonidine HCl 0.1 mg tablet 0.1 mg PO BID Qty: 60 0RF clonidine HCl 0.1 mg tablet 0.1 mg PO BID Qty: 60 0RF insulin glargine [Lantus Solostar U-100 Insulin] 100 unit/mL (3 mL) insulin pen 20 unit subcut QHS Qty: 15 3RF insulin lispro [Humalog KwikPen Insulin] 100 unit/mL insulin pen 8 unit SUBCUT TID Qty: 15 0RF Primary [facility] [facility] - As soon as possible Disposition Disposition: Home, Self Care
[2023-03-10 14:49] LABS: Absolute Lymphocyte Count 1.16 X10^3/uL (0.83-4.51); Absolute Neutrophil Count 10.9 X10^3/uL (2.0-7.7); Basophil# 0.05 X10^3/uL; Basophil% 0.4 % (0-1); Eosinophil# 0.07 X10^3/uL; Eosinophils% 0.5 % (0-5); Hematocrit 39.6 % (40-54); Hemoglobin 13.4 g/dL (13.0-16.5); Lymphocyte # 1.16 X10^3/ul (0.83-4.51); Lymphocyte % 9.1 % (19-41); Mean Corp Hgb Conc 33.8 g/dL (32-36); Mean Corpuscular Hgb 29.1 pg (27.0-32.0); Mean Corpuscular Volume 85.9 fL (80-94); Mean Platelet Vol. 12.9 fl (6.2-12.0); Monocyte# 0.45 X10^3/uL; Monocyte% 3.5 % (0-10); NRBC Flagged by Analyzer 0 % (0-5); Neutrophil # 10.88 X10^3/uL (2.7-7.7); Platelet Count 262 K/mm3 (150-450); RBC Distribution Width CV 13.2 % (11.6-14.6); RBC Distribution Width SD 41.1 fl (35.1-43.9); Red Blood Count 4.61 M/mm3 (4.6-6.2); White Blood Count 12.8 K/mm3 (4.4-11.0)
[2023-03-10] MEDS: 0.9% Normal Saline 1,000 ML 1000 ML IV (14:54)
[2023-03-10 15:10] LABS: AST(SGOT) 58 U/L (15-37); Alanine Aminotransfer ALT/SGPT 69 U/L (16-61); Albumin, Serum 3.9 g/dL (3.2-5.0); Alkaline Phosphatase 107 U/L (45-117); Anion Gap 18 (5-15); BUN 14 mg/dL (7-18); BUN/Creat Ratio 8.9 RATIO (10-20); Chloride 96 mmol/L (98-107); Creatinine, Serum 1.57 mg/dL (0.70-1.30); EST Glomerular Filtration Rate 47 mL/min (>60); Est Glom Filt Rate - Afr Amer 57 mL/min (>60); Estimated Creatinine Clearance 46.76 ml/min; Glucose 324 mg/dL (74-106); Protein, Total 7.9 g/dL (6.4-8.2); Sodium Level 129 mmol/L (136-145); Troponin-I HS (w/2H Reflex) 3 pg/mL (3.0-78.0)
--- NOTE | 2023-03-10 15:22 | RAD_ITS ---
STUDY: X-RAY CHEST REASON FOR EXAM: Male, 67 years old. Altered MS TECHNIQUE: Single AP portable view of the chest. COMPARISON: Comparison is made with prior study dated November 29, 2022. FINDINGS: EKG electrodes are seen. The lungs are clear and expanded. There is no demonstrated pleural abnormality. Normal size heart. Normal mediastinum and verenice. Normal visualized pulmonary arteries. Normal visualized aortic arch and descending thoracic aorta. Normal visualized thoracic spine. Normal visualized ribs, clavicles, and shoulders. There is no demonstrated abnormality of the visualized soft tissue structures of the upper abdomen. RAD/Chest 1 View (Portable) IMPRESSION: Normal x-ray examination of the chest. Electronically Signed: Gopal Lassiter MD at 15:36 EDT ,
[2023-03-10 15:30] LABS: Alcohol, Blood (Medical)-Serum < 3.0 mg/dL
[2023-03-10 15:49] LABS: Lactic Acid 11.4 mmol/L (0.4-1.9)
--- NOTE | 2023-03-10 16:12 | EKG12_ITS ---
Test Reason : POST CA Blood Pressure : / mmHG Vent. Rate : 114 BPM Atrial Rate : 114 BPM P-R Int : 184 ms QRS Dur : 086 ms QT Int : 344 ms P-R-T Axes : 059 007 061 degrees QTc Int : 474 ms Sinus tachycardia Otherwise normal ECG Confirmed by DIANE TERAN, MANISH ([id number]), assignment desk editor DONAL ROCK ([id number]) on 03/14/2023 1:04:48 PM Referred By: BB/PL Confirmed By:KEELY CONTRERAS MD
[2023-03-10 16:15] LABS: Bacteria 0 SEEN /hpf (None Seen); Mucous, Urine 0 SEEN /hpf (<or=2+); Red Blood Cells-Urine 0 SEEN /hpf (0-5); Squamous Epithelial Cells - UA 0 SEEN /hpf (0-5); White Blood Cells 0 SEEN /hpf (0-5)
[2023-03-10] MEDS: LORazepam 2 MG/ML Syringe 0.5 MG IV (16:26)
[2023-03-10] MEDS: Acetaminophen 325 MG Tablet 650 MG PO (16:26)
[2023-03-10] MEDS: Ondansetron 4 MG/2 ML Vial IV (16:26)
[2023-03-10 16:35] LABS: Amphetamine Urine VISTA NEGATIVE (<1000 ng/mL); Barbiturate Urine VISTA NEGATIVE (< 200 ng/mL); Benzodiazepine Urine VISTA NEGATIVE (< 200 ng/mL); Cocaine Urine VISTA NEGATIVE (< 300 ng/mL); Ecstacy Urine VISTA NEGATIVE (< 500 ng/mL); Methadone Urine VISTA NEGATIVE (< 300 ng/mL); PCP Urine VISTA NEGATIVE (< 25 ng/mL); THC Urine VISTA POSITIVE (< 50 ng/mL); Vista UDS pH Range 6
[2023-03-10 16:36] LABS: Color, Urine Yellow (Yellow); Glucose, Dipstick 1000 mg/dl (Normal); Ketone-Dipstick 5 mg/dl (Negative); Leukocyte Esterase-Dipstick Negative /ul (Negative); Nitrite-Dipstick Negative (Negative); Occult Blood-Urine 10 /ul (Negative); Protein-Dipstick 30 mg/dl (Negative); Specific Gravity, Urine 1.015 (1.002-1.030); Urine Bilirubin Dipstick Negative (Negative); Urine Clarity Clear (Clear); Urine Urobilinogen Normal (Normal)
[2023-03-10 16:46] LABS: Reflex Troponin-HS? (from REC) Y
[2023-03-10] MEDS: Mag Hydrox/Al Hydrox/Simeth 30 ML UDC PO (16:55)
[2023-03-10 17:22] LABS: Troponin-I HS 7 pg/mL (3.0-78.0)
[2023-03-10 18:46] LABS: Reflex Lactate? Y
--- NOTE | 2023-03-10 19:03 | ED.RN ---
Spoke with son. Son is very concerned about his father's health. Social service consult ordered. On physical evaluation patient hard to arouse, pin point pupils. Very fatigued. Patient is alert to place, person and month. Per Dr. Garcia repeat lactic sent and to observed.
--- NOTE | 2023-03-10 19:06 | CT_ITS ---
STUDY: CTA Chest and CTA Abdomen and Pelvis W/ Contrast Injection (and W/O Contrast Images if performed) 03/10/2023 7:38 PM REASON FOR EXAM: Male, 67 years old. syncope, AAA TECHNIQUE: The examination was performed with the intravenous administration of IV 100mL Isovue-370 contrast material. Post-processing of the angiographic images was performed, with axial imaging and 3D reconstruction. MIPS images were obtained. Individualized dose optimization techniques were used for this CT. COMPARISON: None. FINDINGS: There are degenerative changes of the shoulders. There is no pneumothorax. There is no demonstrated pleural abnormality. There are calcifications of the coronary arteries. Normal mediastinum. Normal hilar regions. Normal pulmonary arteries. There is atherosclerotic calcification of the aortic arch with tortuosity and elongation of the aortic arch and descending thoracic aorta. There are multi-level degenerative changes of the thoracic spine. There are no acute findings of the upper abdomen. CT/CTA Chst, Abd, Pel W and/or WO IMPRESSION: No demonstrated pulmonary embolism or arterial dissection. There are no acute findings. STUDY: CTA Chest and CTA Abdomen and Pelvis W/ Contrast Injection (and W/O Contrast Images if performed) REASON FOR EXAM: Male, 67 years old. syncope, AAA TECHNIQUE: Axial CT angiography multi-detector data acquisition was obtained following intravenous administration of IV 100mL Isovue-370 contrast. Axial images and MIP images were reconstructed from the axial data set. Post-processing of the angiographic images was performed, with multiplanar reformation and 3D reconstruction. MIPS images were obtained. Individualized dose optimization techniques were used for this CT. COMPARISON: None. FINDINGS: The visualized lung bases are unremarkable. The visualized portions of the heart are within normal limits. There is decreased attenuation of the liver consistent with steatosis. Normal gallbladder and extrahepatic biliary system. Normal spleen. Normal pancreas. Normal bilateral adrenal glands. Cortical scarring of the right kidney. There are hypodensities in the left kidney. These are consistent for cysts. No follow up required. Normal visualized stomach. Normal small intestine. Normal colon. The appendix is visualized and appears normal. Normal inferior vena cava. Normal retroperitoneum. Normal urinary bladder. There is a small umbilical hernia containing fat. There are diffuse degenerative changes of the visualized lumbar spine. There is an unremarkable-appearing IVC. Abdominal aorta: There are calcifications of the abdominal aorta. This is consistent for atherosclerotic disease. There is a 14 x 9mm right sided saccular abdominal aortic aneurysm. Celiac and superior mesenteric arteries: There is mild diffuse narrowing. Inferior mesenteric artery: There is mild diffuse narrowing. Right renal artery(arteries): There is mild diffuse narrowing. Left renal artery(arteries): There is mild diffuse narrowing. Right common iliac artery: There is mild diffuse narrowing. Right external iliac artery: There is mild diffuse narrowing. Right internal iliac artery: There is mild diffuse narrowing. Left common iliac artery: There is mild diffuse narrowing. Left external iliac artery: There is mild diffuse narrowing. Left internal iliac artery: There is mild diffuse narrowing. IMPRESSION: (NOT LISTED IN ORDER OF SIGNIFICANCE) Fatty liver. There is a 14 x 9mm right sided saccular abdominal aortic aneurysm. There is no dissection. Other findings as above. Electronically Signed: Edil Hannah MD at 19:49 EDT ,
--- NOTE | 2023-03-10 19:08 | ED.RN ---
Patient's son received a phone call today that the patient has been dx with and ABD aneurysm. The [facility]. Lizbeth Garcia notified.
[2023-03-10 19:36] LABS: Lactic Acid 1.1 mmol/L (0.4-1.9)
[2023-03-10] MEDS: 0.9% Normal Saline 1,000 ML 999 ML IV (19:43)
--- NOTE | 2023-03-10 22:01 | CM.ED ---
Social Work SW introduced self and role to patient's Son/POA and daughter in law. Patient did not respond. Son reports he did chest compressions as his father was unresponsive today. Son also reports significant decline in patient's ability to care for ADL's and an increase in agitation. Decline is noticeable to SW in comparison to last ED visit. Son is struggling to provide care for patient due to patient's decline and patient has stopped walking, has stopped going to the bathroom and now needs depends, stopped feeding himself, and is frequently becoming unresponsive. Pt has diabetes, dementia and has had 4 strokes. Patient also previously was a heavy drinker. Pt's son reports his father has an AAA that he was suppose to follow up on but did not tell his son or seek further treatment. Pt's son is feeling like he cannot medically provide for his father's needs anymore. [facility] Pt also has Medicare A. Pt likely needs SNF placement. SW collaborated with physician for patient's needs. [facility]. If no bed available then patient could be admitted to [facility]. Izabela Castillo MANAGER DIVISION, [employer]
--- NOTE | 2023-03-10 22:17 | ED.RN ---
[facility]ED THE [facility] LEFT A VOICEMAIL ON THE TRANSFER LINE 10:18PM
[2023-03-11] VITALS (15 sets, daily range): BP systolic 126–179; BP diastolic 78–96; PULSE 65–93; RESP 12–23; O2SAT 95–100
--- NOTE | 2023-03-11 07:45 | ED.RN ---
Breakfast tray given to patient. Pt. stated not hungry right now
--- NOTE | 2023-03-11 08:01 | ED.RN ---
Left voicemail at [place] bed control at [id number] on 03/11/23
--- NOTE | 2023-03-11 08:25 | EX.ED.DYSGE1 ---
HPI <Dr. Omar Garcia MD - Last Filed: 03/16/23 16:48> History of Present Illness Chief Complaint: Unresponsive PENDING SALE TO [facility] <Dr. Omar Garcia MD - Last Filed: 03/16/23 16:48> PENDING SALE TO [facility] Medical History Cognitive impairment Depression Diabetes DKA, type 1 Hypertension Irregular heart beat Kidney disease Orthostatic hypotension Seizures Stroke/cerebrovascular accident Uncontrolled type 1 diabetes mellitus Home Medications blood-glucose sensor (Dexcom G6 Sensor device) #9 ea 09/08/22 [Rx Last Taken Unknown] blood-glucose transmitter (Dexcom G6 Transmitter device) #1 ea 09/08/22 [Rx Last Taken Unknown] escitalopram oxalate 10 mg tablet 10 mg PO DAILY depression 09/08/22 [History Last Taken Unknown] tamsulosin 0.4 mg capsule 0.4 mg PO DAILY prostate 09/08/22 [History Last Taken Unknown] aspirin 81 mg tablet 81 mg PO DAILY 09/10/22 [History Last Taken Unknown] metoprolol succinate 100 mg tablet,extended release 24 hr 50 mg PO DAILY 09/28/22 [History Last Taken Unknown] clonidine HCl 0.1 mg tablet 0.1 mg PO BID #60 tabs 11/18/22 [Rx Last Taken Unknown] clonidine HCl 0.1 mg tablet 0.1 mg PO BID #60 tabs 11/18/22 [Rx Last Taken Unknown] insulin glargine 100 unit/mL (3 mL) subcutaneous pen (Lantus Solostar U-100 Insulin) 20 unit (0.2 mL) subcut QHS #15 mL 02/22/23 [Rx Last Taken Unknown] insulin lispro 100 unit/mL subcutaneous pen (Humalog KwikPen (U-100) Insulin) 8 unit (0.08 mL) subcut TID #15 mL 02/22/23 [Rx Last Taken Unknown] Allergy/AdvReac Type Severity Reaction Status Date / Time No Known Allergies Allergy Verified 03/10/23 14:19 Family History Other CVA (cerebral vascular accident) Colon cancer Diabetes Hypertension Surgical History History of carpal tunnel surgery Hx of elbow surgery Hx of shoulder surgery Hx of vasectomy S/P trigger finger release Social History household members: family Smoking Status: Former smoker alcohol intake: former substance use type: does not use EXAM <Dr. Omar Garcia MD - Last Filed: 03/16/23 16:48> Physical Exam Const Vital Signs: 03/10/23 14:19 03/10/23 14:24 03/10/23 14:58 Temperature 97 F L Temperature Source Temporal Pulse Rate 109 H Respiratory Rate 16 Blood Pressure 136/86 H 126/68 H Blood Pressure Mean 102 87 Pulse Ox 97 Oxygen Delivery Method Room Air 03/10/23 16:26 03/10/23 18:25 03/10/23 19:00 Temperature Temperature Source Pulse Rate 96 93 91 Respiratory Rate 22 H 17 Blood Pressure 145/71 H 161/82 H Blood Pressure Mean 95 108 Pulse Ox 99 Oxygen Delivery Method Room Air 03/10/23 20:50 03/10/23 21:00 03/10/23 22:00 Temperature Temperature Source Pulse Rate 94 89 88 Respiratory Rate 16 16 Blood Pressure 136/78 H 145/79 H 143/80 H Blood Pressure Mean 97 101 101 Pulse Ox Oxygen Delivery Method Room Air 03/10/23 23:00 03/11/23 00:00 03/11/23 01:14 Temperature Temperature Source Pulse Rate 88 89 85 Respiratory Rate 12 22 H Blood Pressure 134/83 H 126/78 H 142/82 H Blood Pressure Mean 100 94 102 Pulse Ox 95 Oxygen Delivery Method Room Air 03/11/23 03:04 03/11/23 05:40 03/11/23 06:00 Temperature Temperature Source Pulse Rate 81 80 76 Respiratory Rate 19 H 17 18 Blood Pressure 140/80 H 153/88 H 163/87 H Blood Pressure Mean 100 109 112 Pulse Ox 95 97 Oxygen Delivery Method Room Air Room Air Room Air <Dr. Adalberto Enrique DO - Last Filed: 03/28/23 23:09> Physical Exam Const Vital Signs: 03/10/23 14:19 03/10/23 14:24 03/10/23 14:58 Temperature 97 F L Temperature Source Temporal Pulse Rate 109 H Respiratory Rate 16 Blood Pressure 136/86 H 126/68 H Blood Pressure Mean 102 87 Pulse Ox 97 Oxygen Delivery Method Room Air 03/10/23 16:26 03/10/23 18:25 03/10/23 19:00 Temperature Temperature Source Pulse Rate 96 93 91 Respiratory Rate 22 H 17 Blood Pressure 145/71 H 161/82 H Blood Pressure Mean 95 108 Pulse Ox 99 Oxygen Delivery Method Room Air 03/10/23 20:50 03/10/23 21:00 03/10/23 22:00 Temperature Temperature Source Pulse Rate 94 89 88 Respiratory Rate 16 16 Blood Pressure 136/78 H 145/79 H 143/80 H Blood Pressure Mean 97 101 101 Pulse Ox Oxygen Delivery Method Room Air 03/10/23 23:00 03/11/23 00:00 03/11/23 01:14 Temperature Temperature Source Pulse Rate 88 89 85 Respiratory Rate 12 22 H Blood Pressure 134/83 H 126/78 H 142/82 H Blood Pressure Mean 100 94 102 Pulse Ox 95 Oxygen Delivery Method Room Air 03/11/23 03:04 03/11/23 05:40 03/11/23 06:00 Temperature Temperature Source Pulse Rate 81 80 76 Respiratory Rate 19 H 17 18 Blood Pressure 140/80 H 153/88 H 163/87 H Blood Pressure Mean 100 109 112 Pulse Ox 95 97 Oxygen Delivery Method Room Air Room Air Room Air MDM <Dr. Omar Garcia MD - Last Filed: 03/16/23 16:48> MDM MDM Narrative Medical decision making narrative: Accidental additional note entry please ignore Lab Data Labs: Laboratory Results - last 24 hr 03/10/23 03/10/23 03/10/23 14:39 16:00 16:52 WBC 12.8 H RBC 4.61 Hgb 13.4 Hct 39.6 L MCV 85.9 MCH 29.1 MCHC 33.8 RDW Std Deviation 41.1 RDW Coeff of Tyrese 13.2 Plt Count 262 MPV 12.9 H Immature Gran % (Auto) 1.500 H Neut % (Auto) 85.0 H Lymph % (Auto) 9.1 L [place] % (Auto) 3.5 Eos % (Auto) 0.5 Baso % (Auto) 0.4 Absolute Neuts (auto) 10.9 H Absolute Lymphs (auto) 1.16 Nucleated RBC % 0 Sodium 129 L Potassium 4.0 Chloride 96 L Carbon Dioxide 15.0 L Anion Gap 18 H BUN 14 Creatinine 1.57 H Estim Creat Clear Calc 46.76 Est GFR (MDRD) Af Amer 57 L Est GFR (MDRD) Non-Af 47 L BUN/Creatinine Ratio 8.9 L Glucose 324 H Lactic Acid 11.4 H* Calcium 9.0 Total Bilirubin 0.40 AST 58 H ALT 69 H Alkaline Phosphatase 107 Troponin I High Sens 3 7 Total Protein 7.9 Albumin 3.9 Globulin 4.0 Albumin/Globulin Ratio 1.0 Urine Color Yellow Urine Clarity Clear Urine pH 6.0 Ur Specific [place] 1.015 Urine Protein 30 H Urine Glucose (UA) 1000 H Urine Ketones 5 H Urine Occult Blood 10 H Urine Nitrite Negative Urine Bilirubin Negative Urine Urobilinogen Normal Ur Leukocyte Esterase Negative Urine RBC 0 SEEN Urine WBC 0 SEEN Ur Squamous Epith Cells 0 SEEN Urine Bacteria 0 SEEN Urine Mucus 0 SEEN Urine Opiates Screen NEGATIVE Urine Methadone Screen NEGATIVE Ur Barbiturates Screen NEGATIVE Ur Phencyclidine Scrn NEGATIVE Ur Amphetamines Screen NEGATIVE MDMA (Ecstasy) Screen NEGATIVE U Benzodiazepines Scrn NEGATIVE Urine Cocaine Screen NEGATIVE U Cannabinoids Screen POSITIVE H Ur Drug Screen Comment Ethyl Alcohol < 3.0 03/10/23 19:00 WBC RBC Hgb Hct MCV MCH MCHC RDW Std Deviation RDW Coeff of Tyrese Plt Count MPV Immature Gran % (Auto) Neut % (Auto) Lymph % (Auto) [place] % (Auto) Eos % (Auto) Baso % (Auto) Absolute Neuts (auto) Absolute Lymphs (auto) Nucleated RBC % Sodium Potassium Chloride Carbon Dioxide Anion Gap BUN Creatinine Estim Creat Clear Calc Est GFR (MDRD) Af Amer Est GFR (MDRD) Non-Af BUN/Creatinine Ratio Glucose Lactic Acid 1.1 Calcium Total Bilirubin AST ALT Alkaline Phosphatase Troponin I High Sens Total Protein Albumin Globulin Albumin/Globulin Ratio Urine Color Urine Clarity Urine pH Ur Specific [place] Urine Protein Urine Glucose (UA) Urine Ketones Urine Occult Blood Urine Nitrite Urine Bilirubin Urine Urobilinogen Ur Leukocyte Esterase Urine RBC Urine WBC Ur Squamous Epith Cells Urine Bacteria Urine Mucus Urine Opiates Screen Urine Methadone Screen Ur Barbiturates Screen Ur Phencyclidine Scrn Ur Amphetamines Screen MDMA (Ecstasy) Screen U Benzodiazepines Scrn Urine Cocaine Screen U Cannabinoids Screen Ur Drug Screen Comment Ethyl Alcohol Radiography Diagnostic Testing: Clinical Impression(s) from Imaging Studies Brain CT 03/10/23 14:34 IMPRESSION: Chronic involutional changes of the brain. Electronically Signed: Gopal Lassiter MD at 15:34 EDT , Chest X-Ray 03/10/23 15:22 IMPRESSION: Normal x-ray examination of the chest. Electronically Signed: Gopal Lassiter MD at 15:36 EDT , Chest/Abdomen/Pelvis CTA 03/10/23 19:06 IMPRESSION: No demonstrated pulmonary embolism or arterial dissection. There are no acute findings. STUDY: CTA Chest and CTA Abdomen and Pelvis W/ Contrast Injection (and W/O Contrast Images if performed) REASON FOR EXAM: Male, 67 years old. syncope, AAA TECHNIQUE: Axial CT angiography multi-detector data acquisition was obtained following intravenous administration of IV 100mL Isovue-370 contrast. Axial images and MIP images were reconstructed from the axial data set. Post-processing of the angiographic images was performed, with multiplanar reformation and 3D reconstruction. MIPS images were obtained. Individualized dose optimization techniques were used for this CT. COMPARISON: None. FINDINGS: The visualized lung bases are unremarkable. The visualized portions of the heart are within normal limits. There is decreased attenuation of the liver consistent with steatosis. Normal gallbladder and extrahepatic biliary system. Normal spleen. Normal pancreas. Normal bilateral adrenal glands. Cortical scarring of the right kidney. There are hypodensities in the left kidney. These are consistent for cysts. No follow up required. Normal visualized stomach. Normal small intestine. Normal colon. The appendix is visualized and appears normal. Normal inferior vena cava. Normal retroperitoneum. Normal urinary bladder. There is a small umbilical hernia containing fat. There are diffuse degenerative changes of the visualized lumbar spine. There is an unremarkable-appearing IVC. Abdominal aorta: There are calcifications of the abdominal aorta. This is consistent for atherosclerotic disease. There is a 14 x 9mm right sided saccular abdominal aortic aneurysm. Celiac and superior mesenteric arteries: There is mild diffuse narrowing. Inferior mesenteric artery: There is mild diffuse narrowing. Right renal artery(arteries): There is mild diffuse narrowing. Left renal artery(arteries): There is mild diffuse narrowing. Right common iliac artery: There is mild diffuse narrowing. Right external iliac artery: There is mild diffuse narrowing. Right internal iliac artery: There is mild diffuse narrowing. Left common iliac artery: There is mild diffuse narrowing. Left external iliac artery: There is mild diffuse narrowing. Left internal iliac artery: There is mild diffuse narrowing. IMPRESSION: (NOT LISTED IN ORDER OF SIGNIFICANCE) Fatty liver. There is a 14 x 9mm right sided saccular abdominal aortic aneurysm. There is no dissection. Other findings as above. Electronically Signed: Edil Hannah MD at 19:49 EDT Reading Location ID and State: [facility] / [place] , Service support , <Dr. Adalberto Enrique, DO - Last Filed: 03/28/23 23:09> [facility] Lab Data Labs: Laboratory Results - last 24 hr 03/10/23 03/10/23 03/10/23 14:39 16:00 16:52 WBC 12.8 H RBC 4.61 Hgb 13.4 Hct 39.6 L MCV 85.9 MCH 29.1 MCHC 33.8 RDW Std Deviation 41.1 RDW Coeff of Tyrese 13.2 Plt Count 262 MPV 12.9 H Immature Gran % (Auto) 1.500 H Neut % (Auto) 85.0 H Lymph % (Auto) 9.1 L [place] % (Auto) 3.5 Eos % (Auto) 0.5 Baso % (Auto) 0.4 Absolute Neuts (auto) 10.9 H Absolute Lymphs (auto) 1.16 Nucleated RBC % 0 Sodium 129 L Potassium 4.0 Chloride 96 L Carbon Dioxide 15.0 L Anion Gap 18 H BUN 14 Creatinine 1.57 H Estim Creat Clear Calc 46.76 Est GFR (MDRD) Af Amer 57 L Est GFR (MDRD) Non-Af 47 L BUN/Creatinine Ratio 8.9 L Glucose 324 H Lactic Acid 11.4 H* Calcium 9.0 Total Bilirubin 0.40 AST 58 H ALT 69 H Alkaline Phosphatase 107 Troponin I High Sens 3 7 Total Protein 7.9 Albumin 3.9 Globulin 4.0 Albumin/Globulin Ratio 1.0 Urine Color Yellow Urine Clarity Clear Urine pH 6.0 Ur Specific [place] 1.015 Urine Protein 30 H Urine Glucose (UA) 1000 H Urine Ketones 5 H Urine Occult Blood 10 H Urine Nitrite Negative Urine Bilirubin Negative Urine Urobilinogen Normal Ur Leukocyte Esterase Negative Urine RBC 0 SEEN Urine WBC 0 SEEN Ur Squamous Epith Cells 0 SEEN Urine Bacteria 0 SEEN Urine Mucus 0 SEEN Urine Opiates Screen NEGATIVE Urine Methadone Screen NEGATIVE Ur Barbiturates Screen NEGATIVE Ur Phencyclidine Scrn NEGATIVE Ur Amphetamines Screen NEGATIVE MDMA (Ecstasy) Screen NEGATIVE U Benzodiazepines Scrn NEGATIVE Urine Cocaine Screen NEGATIVE U Cannabinoids Screen POSITIVE H Ur Drug Screen Comment Ethyl Alcohol < 3.0 03/10/23 19:00 WBC RBC Hgb Hct MCV MCH MCHC RDW Std Deviation RDW Coeff of Tyrese Plt Count MPV Immature Gran % (Auto) Neut % (Auto) Lymph % (Auto) [place] % (Auto) Eos % (Auto) Baso % (Auto) Absolute Neuts (auto) Absolute Lymphs (auto) Nucleated RBC % Sodium Potassium Chloride Carbon Dioxide Anion Gap BUN Creatinine Estim Creat Clear Calc Est GFR (MDRD) Af Amer Est GFR (MDRD) Non-Af BUN/Creatinine Ratio Glucose Lactic Acid 1.1 Calcium Total Bilirubin AST ALT Alkaline Phosphatase Troponin I High Sens Total Protein Albumin Globulin Albumin/Globulin Ratio Urine Color Urine Clarity Urine pH Ur Specific [place] Urine Protein Urine Glucose (UA) Urine Ketones Urine Occult Blood Urine Nitrite Urine Bilirubin Urine Urobilinogen Ur Leukocyte Esterase Urine RBC Urine WBC Ur Squamous Epith Cells Urine Bacteria Urine Mucus Urine Opiates Screen Urine Methadone Screen Ur Barbiturates Screen Ur Phencyclidine Scrn Ur Amphetamines Screen MDMA (Ecstasy) Screen U Benzodiazepines Scrn Urine Cocaine Screen U Cannabinoids Screen Ur Drug Screen Comment Ethyl Alcohol Radiography Diagnostic Testing: Clinical Impression(s) from Imaging Studies Brain CT 03/10/23 14:34 IMPRESSION: Chronic involutional changes of the brain. Electronically Signed: Gopal Lassiter MD at 15:34 EDT , Chest X-Ray 03/10/23 15:22 IMPRESSION: Normal x-ray examination of the chest. Electronically Signed: Gopal Lassiter MD at 15:36 EDT , Chest/Abdomen/Pelvis CTA 03/10/23 19:06 IMPRESSION: No demonstrated pulmonary embolism or arterial dissection. There are no acute findings. STUDY: CTA Chest and CTA Abdomen and Pelvis W/ Contrast Injection (and W/O Contrast Images if performed) REASON FOR EXAM: Male, 67 years old. syncope, AAA TECHNIQUE: Axial CT angiography multi-detector data acquisition was obtained following intravenous administration of IV 100mL Isovue-370 contrast. Axial images and MIP images were reconstructed from the axial data set. Post-processing of the angiographic images was performed, with multiplanar reformation and 3D reconstruction. MIPS images were obtained. Individualized dose optimization techniques were used for this CT. COMPARISON: None. FINDINGS: The visualized lung bases are unremarkable. The visualized portions of the heart are within normal limits. There is decreased attenuation of the liver consistent with steatosis. Normal gallbladder and extrahepatic biliary system. Normal spleen. Normal pancreas. Normal bilateral adrenal glands. Cortical scarring of the right kidney. There are hypodensities in the left kidney. These are consistent for cysts. No follow up required. Normal visualized stomach. Normal small intestine. Normal colon. The appendix is visualized and appears normal. Normal inferior vena cava. Normal retroperitoneum. Normal urinary bladder. There is a small umbilical hernia containing fat. There are diffuse degenerative changes of the visualized lumbar spine. There is an unremarkable-appearing IVC. Abdominal aorta: There are calcifications of the abdominal aorta. This is consistent for atherosclerotic disease. There is a 14 x 9mm right sided saccular abdominal aortic aneurysm. Celiac and superior mesenteric arteries: There is mild diffuse narrowing. Inferior mesenteric artery: There is mild diffuse narrowing. Right renal artery(arteries): There is mild diffuse narrowing. Left renal artery(arteries): There is mild diffuse narrowing. Right common iliac artery: There is mild diffuse narrowing. Right external iliac artery: There is mild diffuse narrowing. Right internal iliac artery: There is mild diffuse narrowing. Left common iliac artery: There is mild diffuse narrowing. Left external iliac artery: There is mild diffuse narrowing. Left internal iliac artery: There is mild diffuse narrowing. IMPRESSION: (NOT LISTED IN ORDER OF SIGNIFICANCE) Fatty liver. There is a 14 x 9mm right sided saccular abdominal aortic aneurysm. There is no dissection. Other findings as above. Electronically Signed: Edil Hannah MD at 19:49 EDT , Rhythm Strip Rhythm Strip: Sinus Rhythm Rate: 110 Ectopy: None Discharge Plan Triage Chief Complaint: Unresponsive ED Provider: Omar Garcia Dx/Rx/DC Orders Clinical Impression: Hyperglycemia due to diabetes mellitus, Transient alteration of awareness, Chest pain, Cognitive impairment, Declining functional status Prescriptions: Continued tamsulosin 0.4 mg capsule 0.4 mg PO DAILY escitalopram oxalate 10 mg tablet 10 mg PO DAILY (DME) Dexcom G6 Sensor Device See Rx Instructions .Route Qty: 9 1RF Rx Instructions: 1 sensor q 10 days (DME) Dexcom G6 Transmitter Device See Rx Instructions .Route Qty: 1 1RF Rx Instructions: 1 transmitter q 90 days metoprolol succinate 100 mg tablet extended release 24 hr 50 mg PO DAILY aspirin 81 mg Tablet 81 mg PO DAILY clonidine HCl 0.1 mg tablet 0.1 mg PO BID Qty: 60 0RF clonidine HCl 0.1 mg tablet 0.1 mg PO BID Qty: 60 0RF insulin glargine [Lantus Solostar U-100 Insulin] 100 unit/mL (3 mL) insulin pen 20 unit subcut QHS Qty: 15 3RF insulin lispro [Humalog KwikPen Insulin] 100 unit/mL insulin pen 8 unit SUBCUT TID Qty: 15 0RF [facility] [Primary Care Provider] - As soon as possible Disposition Disposition: Hospice in Medical Facility Discharge Location: [facility] Discharge Date/Time: 03/11/23 19:40
[2023-03-11 08:28] LABS: Absolute Lymphocyte Count 0.77 X10^3/uL (0.83-4.51); Absolute Neutrophil Count 8.6 X10^3/uL (2.0-7.7); Basophil# 0.02 X10^3/uL; Basophil% 0.2 % (0-1); Eosinophil# 0.01 X10^3/uL; Eosinophils% 0.1 % (0-5); Hematocrit 36.6 % (40-54); Hemoglobin 12.3 g/dL (13.0-16.5); Lymphocyte # 0.77 X10^3/ul (0.83-4.51); Lymphocyte % 7.7 % (19-41); Mean Corp Hgb Conc 33.6 g/dL (32-36); Mean Corpuscular Hgb 28.6 pg (27.0-32.0); Mean Corpuscular Volume 85.1 fL (80-94); Mean Platelet Vol. 12.6 fl (6.2-12.0); Monocyte# 0.56 X10^3/uL; Monocyte% 5.6 % (0-10); NRBC Flagged by Analyzer 0 % (0-5); Neutrophil # 8.63 X10^3/uL (2.7-7.7); Neutrophil % 85.9 % (47-70); Platelet Count 193 K/mm3 (150-450); RBC Distribution Width CV 13.5 % (11.6-14.6); RBC Distribution Width SD 41.4 fl (35.1-43.9)
[2023-03-11 08:44] LABS: ALB/GLOB Ratio 1.1 RATIO (0.9-2.4); AST(SGOT) 32 U/L (15-37); Alanine Aminotransfer ALT/SGPT 46 U/L (16-61); Albumin, Serum 3.5 g/dL (3.2-5.0); Alkaline Phosphatase 88 U/L (45-117); Anion Gap 7 (5-15); BUN 10 mg/dL (7-18); BUN/Creat Ratio 9.3 RATIO (10-20); Calcium,Total 8.6 mg/dL (8.5-10.1); Chloride 104 mmol/L (98-107); Creatinine, Serum 1.08 mg/dL (0.70-1.30); EST Glomerular Filtration Rate 72 mL/min (>60); Est Glom Filt Rate - Afr Amer 88 mL/min (>60); Estimated Creatinine Clearance 67.97 ml/min; Globulin 3.3 g/dL (2.2-4.2); Glucose 266 mg/dL (74-106); Protein, Total 6.8 g/dL (6.4-8.2); Sodium Level 133 mmol/L (136-145)
--- NOTE | 2023-03-11 09:55 | CASEMGMT ---
DONYA called [facility] in [place] regarding patient's [facility] service connection. Per Too patient is not service connected enough to go to a long term under [facility] unless he goes on Hospice. Patient could be eligible for home services, but this would take some time to arrange. DONYA did review patient's chart and he has a MMO insurance card. DONYA called and patient's MMO is not active per insurance recording. DONYA will notify ED DONYA. Christy CESAR
--- NOTE | 2023-03-11 12:53 | ED.RN ---
THIS RN CALLED RESPIRATORY TO REPEAT EKG AT 1254.
--- NOTE | 2023-03-11 13:00 | EKG12_ITS ---
Test Reason : Blood Pressure : / mmHG Vent. Rate : 074 BPM Atrial Rate : 074 BPM P-R Int : 184 ms QRS Dur : 094 ms QT Int : 402 ms P-R-T Axes : 055 007 046 degrees QTc Int : 446 ms Normal sinus rhythm Normal ECG Confirmed by DIANE TERAN, MANISH ([id number]), photo editor DONAL ROCK ([id number]) on 03/14/2023 1:16:55 PM Referred By: [email or web address] Confirmed By:KEELY CONTRERAS MD
[2023-03-11 13:17] LABS: Bedside Glucose 247 mg/dL (74-106)
--- NOTE | 2023-03-11 14:55 | CM.ED ---
Social Work SW work spoke with [facility] regarding poss transfer. Worker reports it isn't a 5 min or a 5 hour process. This could take days. PA [place] SW Too, reports he has hospice coverage and if patient is deemed appropriate for hospice and family wishes to pursue, that patient would have coverage through the PA and this would cover SNF as well. PA SW reports the closest SNF they work with is [facility]. This would be a hospital referral to [facility] if appropriate or hospice [facility] if deemed necessary. Hospitalist reports hospice could be appropriate. Son, Joe, agreed to talk with Hospice. Hospice took referral and is scheduled to meet with patient and family at 5:00 pm. Plan: If patient/family agrees to hospice, review with hospice to determine whether [facility], [facility] or home with assistance is appropriate. Izabela Castillo, MEASURING CLERK, ENVIRONMENTAL COORDINATOR
[2023-03-11] MEDS: Insulin Lispro 100 UNIT/ML INSULN.PEN 8 UNIT SC ×2 (16:25→19:03)
[2023-03-11 16:28] LABS: Bedside Glucose 309 mg/dL (74-106)
--- NOTE | 2023-03-11 16:28 | ED.RN ---
AT 0700 HANDOFF, PT WAS AWAITING TO HEAR BACK FROM THE [facility] IN REGARDS TO POTENTIALLY TRANSFERRING PT TO BE ADMITTED FOR JAIL PLACEMENT. [facility] WAS UNSUCCESSFULLY CONTACTED PER ACCOUNT MANAGER B2B. AT 1000 SHIPPING PROCESSOR JODI TO FOLLOW UP WITH THE PATIENT REGARDING CONTINUED ED STAY AND HAVING [facility] INSURANCE. PT SON UNABLE TO CARE FOR PATIENT ANY LONGER. HOSPITALIST OVERNIGHT REFUSED TO ADMIT THE PATIENT DUE TO NOT HEARING BACK FROM THE [facility]. PT OFFERED BREAKFAST, WHICH HE REFUSED TO EAT. JODI SHIPPING PROCESSOR REPORTS THAT PT MAY BE ELIGIBLE FOR JAIL PLACEMENT THROUGH HOSPICE IF PT WAS DEEMED APPROPRIATE FOR HOSPICE CARE. HOSPICE NURE AT BEDSIDE AT 1600. AWAIITNG ARRIVAL PT FAMILY.
[2023-03-11] MEDS: Acetaminophen 500 MG Tablet 1000 MG PO (17:33)
--- NOTE | 2023-03-11 19:02 | ED.RN ---
THIS RN CALLED PT REPORT TO [facility] AT 1902. REPORT GIVEN TO MARK BANUELOS.
[2023-03-11 19:10] LABS: Bedside Glucose 351 mg/dL (74-106)
--- NOTE | 2023-03-11 19:34 | ED.RN ---
REPORT GIVEN BY THIS RN TO ANNIKA, [facility] AT 1935.
--- NOTE | 2023-03-11 19:39 | ED.RN ---
THIS RN CALLED PT SON AND POA (LUIS MANUEL HYDE) TO LET HIM KNOW PT WAS PICKED UP AND TRANSPORTED TO [facility].
--- NOTE | 2023-03-21 10:57 | CM.ED ---
Social Work SW notified that family met with Hospice and agreed to Hospice care. Pt transported to [facility] via hospice. Izabela Castillo TAXI PROPRIETOR, GUEST RELATIONS EXECUTIVE
== END 2023-03-11 19:40 | disposition hospice, inpatient (51) ==
PROVIDERS: Internal Medicine; Emergency Provider Emergency Medicine; Visit Provider Emergency Medicine
DX: R40.4 Transient alteration of awareness (principal); E10.65 Type 1 diabetes mellitus with hyperglycemia; Z79.4 Long term (current) use of insulin; R07.9 Chest pain, unspecified; I10 Essential (primary) hypertension; Z87.891 Personal history of nicotine dependence; F32.A Depression, unspecified; Z79.899 Other long term (current) drug therapy; Z79.82 Long term (current) use of aspirin; Z86.73 Personal history of transient ischemic attack (TIA), and cerebral infarction without residual deficits; Z98.52 Vasectomy status
CPT/HCPCS: 70450; 71045; 71275; 74174; 80053; 80307; 81001; 82077; 82140; 82962; 83605; 84484; 85025; 93005; 99285; J7030; P9612; Q9967; A4216; J2405